=== PATIENT | female | born 1975 ===

== ENCOUNTER → 2017-12-25 11:12 | Outpatient (CLI) | payer OTHER, SELFPAY ==
[2017-12-25 12:07] LABS: Appearance Urine UA CLEAR; Bilirubin Urine UA NEGATIVE (NEGATIVE); Color Urine UA YELLOW; Glucose Urine UA NEGATIVE (Normal); Ketones Urine UA NEGATIVE (NEGATIVE); Leukocyte Esterase Urine UA NEGATIVE (NEGATIVE); Nitrite Urine UA Negative (Negative); Occult Blood Urine UA 3+ (Negative); Protein Urine UA NEGATIVE (Negative); Specific Gravity Urine UA <=1.005 (1.000-1.035); Urobilinogen Urine UA 0.2 E.U./dL (0.2)
[2017-12-25 12:43] LABS: Amorphous Sediment Urine 1+; RBC Urine 10-30/HPF (0-5/HPF); WBC Urine 0-1/HPF (0-5/HPF)
[2017-12-25 12:44] LABS: Bacteria Urine Occasional (0-1)
[2017-12-25 12:45] LABS: Culture Indicated Urine Cult Not Indicated; Squamous Epithelial Cell Urine 5-10 /HPF
== END ==
PROVIDERS: Family Provider Family Medicine; PCP Family Medicine; Visit Provider Family Medicine
DX: R31.9 Hematuria, unspecified (principal)
CPT/HCPCS: 81001

== ENCOUNTER → 2018-01-01 08:39 | Outpatient (CLI) | payer OTHER, SELFPAY ==
--- NOTE | 2018-01-01 08:48 | DI.CT.S_ITS ---
PROCEDURE: CT KIDNEY URETER BLADDER (KUB) INDICATIONS: gross hematuria TECHNIQUE: Noncontrast 5 mm thick sections acquired from the diaphragms to the symphysis. 5 mm thick coronal and sagittal reformats were then performed. For radiation dose reduction, the following was used: automated exposure control, adjustment of mA and/or kV according to patient size. COMPARISON: [facility], CT, KIDNEY/ URETER/BLADDER, 09/05/2013, 10:49. [facility], CT, ABDOMEN/PELVIS WITH CONTRAST, 06/10/2016, 14:19. FINDINGS: Image quality: Excellent. Lung bases: Lung bases are clear. Heart size is normal. Urinary system: Small nonobstructing calculi in the lower pole collecting system of the right kidney. No right hydronephrosis or perinephric fat stranding. The left kidney shows moderate hydronephrosis secondary to a 2 x 6 mm obstructing calculus at the ureteral pelvic junction. Bladder is nondistended, wall thickness is normal; no calcified bladder stones. Other solid organs: Liver is normal in size. Gallbladder is surgically absent. Pancreas is normal in contours. Spleen is normal in size. No adrenal nodules. Peritoneum and bowel: There is a line of sutures along the greater curvature of the stomach. Unenhanced bowel loops demonstrate normal wall thickness and caliber. No free fluid or air. Nodes and vessels: No retroperitoneal or mesenteric adenopathy by size criteria. Aorta and inferior vena cava are normal in caliber. Abdominal wall: No ventral hernias. There is apparent scar in the anterior abdominal wall above the umbilicus. Pelvis: No free pelvic fluid. No inguinal hernias or adenopathy. Bones: No suspicious bony lesions. No vertebral body compression fractures. IMPRESSION: 1. Right nephrolithiasis without hydronephrosis. 2. Left hydronephrosis secondary to an obstructing calculus at the UPJ. 3. Postoperative changes at the stomach. Post cholecystectomy. Dictated by: Fernando Neves M.D. on 01/01/2018 at 9:29 Approved by: Fernando Neves M.D. on 01/01/2018 at 9:37
== END ==
PROVIDERS: Family Provider Family Medicine; PCP Family Medicine; Visit Provider Family Medicine
DX: N13.2 Hydronephrosis with renal and ureteral calculous obstruction (principal); R31.0 Gross hematuria; Z87.442 Personal history of urinary calculi; Z90.49 Acquired absence of other specified parts of digestive tract
CPT/HCPCS: 74176

== ENCOUNTER 2018-01-13 18:06 | Emergency (ER) | payer OTHER, SELFPAY ==
[2018-01-13 18:52] VITALS: BP 129/90; PULSE 119; RESP 20; TEMP 37.1; O2SAT 100; BMI 39.3
--- NOTE | 2018-01-13 20:12 | ED.FEMALEGU ---
HPI - Female Genitourinary <EDOUARD Barlow - Last Filed: 01/13/18 23:00> General Chief complaint: Urogenital-Female Stated complaint: HAD KIDNEY STONE REMOVED AND A STENT PLACED PAIN Time Seen by Provider: 01/13/18 19:47 Source: patient Mode of arrival: ambulatory Limitations: no limitations History of Present Illness HPI Narrative: 42-year-old female here for complaint of pain into her left side status left ureter stent due to renal calculi 2 days ago. Surgery was completed by Dr. Agarwal Urologdaniel and sandeep Rivers. She reports that she has had pain since the surgery. She has been using hydrocodone as prescribed for the pain. She states that has not been helping. She denies any fevers or chills. No trauma to the area. She also reports having hematuria. She states she is currently taking the antibiotic however she states that she does not know which 1 she is on. She states she has a follow-up appointment with them in the next few days. Related Data Previous Rx's Medication Instructions Recorded omeprazole 20 mg PO HS #90 tab 04/21/16 nystatin 1 alyssa TOPICAL BID #15 gm 01/30/17 triamcinolone acetonide [Triderm] 1 alyssa TOPICAL BID #30 gm 01/30/17 amitriptyline 50 mg PO QDAY #90 tab 05/12/17 lamotrigine 200 mg PO QDAY #90 tab 06/07/17 venlafaxine 225 mg PO Q DAY #180 ter 12/14/17 tamsulosin 0.4 mg capsule 0.4 mg PO DAILY #14 cap 01/05/18 oxycodone 5 mg PO Q4-6H PRN #10 cap 01/13/18 tramadol 50 mg PO Q6H PRN #15 tab 01/13/18 Allergies Allergy/AdvReac Type Severity Reaction Status Date / Time codeine [CODEINE] Allergy Unknown RESPIRATORY Unverified 01/13/18 18:51 DISTRESS oxybutynin Allergy Verified 01/13/18 18:52 hydromorphone [HYDROMORPHONE] AdvReac Mild RESPIRATORY Unverified 01/13/18 18:51 DISTRESS morphine [MORPHINE] AdvReac Mild RESPIRATORY Unverified 01/13/18 18:51 DISTRESS Review of Systems <EDOUARD Barlow - Last Filed: 01/13/18 23:00> Constitutional Denies chills, Denies fever(s), Denies lethargy and Denies weakness Eyes Denies change in vision, Denies eye discharge, Denies irritation and Denies loss of vision Cardiovascular Denies chest pain, Denies irregular heart rhythm, Denies lightheadedness, Denies palpitations, Denies dyspnea, Denies dyspnea on exertion and Denies orthopnea Respiratory Denies cough, Denies dyspnea, Denies dyspnea on exertion and Denies wheezing Gastrointestinal Gastrointestinal: Denies abdominal pain, Denies change in bowel habits, Denies diarrhea, Denies nausea and Denies vomiting Genitourinary Reports hematuria and Reports flank pain Musculoskeletal Denies back pain, Denies muscle weakness, Denies numbness and Denies tingling Integumentary/Breasts Denies pruritus, Denies erythema, Denies rash and Denies wounds Neurologic Denies confusion, Denies loss of vision, Denies numbness, Denies tingling and Denies weakness Psychiatric Denies anxiety, Denies confusion, Denies depression, Denies homicidal ideation and Denies suicidal ideation Endocrine Denies palpitations Hematologic/Lymphatic Denies easy bruising Allergic/Immunologic Denies wheezing Exam <EDOUARD Barlow - Last Filed: 01/13/18 23:00> Initial Vital Signs Initial Vital Signs: Vital Signs Temperature 98.7 F 01/13/18 18:52 Pulse Rate 119 H 01/13/18 18:52 Respiratory Rate 20 01/13/18 18:52 Blood Pressure 129/90 H 01/13/18 18:52 Pulse Oximetry 100 01/13/18 18:52 Const General: cooperative and well developed Nutritional Appearance: well nourished Orientation: alert, awake, oriented x3 and not confused [facility] Mouth: oral mucosae normal and moist mucous membranes Eyes Conjunctivae: conjunctivae normal Sclera: sclerae normal Pupils: PERRL EOM: EOM intact bilaterally Resp Effort & Inspection: normal respiratory effort, able to speak in complete sentences, no respiratory distress and no use of accessory muscles Auscultation: clear to auscultation bilaterally, no rales, no rhonchi and no wheezes Cardio Rate: regular rate Rhythm: regular rhythm Heart Sounds: no click, no gallops, no murmurs and no rubs GI Inspection: non-distended Palpation: soft, no hepatosplenomegaly, No guarding, No pulsatile mass and No tender Auscultation: normal bowel sounds General: No CVA tenderness Back/Spine/Pelvis Other: Tenderness to the left flank area on palpation. Skin General: no rashes or lesions noted, No jaundice and No petechiae Neuro General: alert, oriented x3, gait normal and no focal motor deficits Speech: speech normal <Dwaine Weaver MD - Last Filed: 01/14/18 05:22> Initial Vital Signs Initial Vital Signs: Vital Signs Temperature 98.7 F 01/13/18 18:52 Pulse Rate 119 H 01/13/18 18:52 Respiratory Rate 20 01/13/18 18:52 Blood Pressure 129/90 H 01/13/18 18:52 Pulse Oximetry 100 01/13/18 18:52 Course <EDOUARD Barlow - Last Filed: 01/13/18 23:00> Orders Ordered: ED Orders 01/13/18 20:27 Complete Blood Count AUTO DIFF Stat Comprehensive Metabolic Panel Stat Lipase Stat Partial Thromboplastin Time Stat Prothrombin Time INR Stat Discontinued Medications Fentanyl (Sublimaze) 50 mcg IV NOW ONE Stop: 01/13/18 20:20 Last Admin: 01/13/18 20:41 Dose: 50 mcg Fentanyl (Sublimaze) 50 mcg IV NOW ONE Stop: 01/13/18 21:39 Last Admin: 01/13/18 21:40 Dose: 50 mcg Sodium Chloride (Normal Saline 0.9%) 1,000 mls @ 1,000 mls/hr IV BOLUS ONE Stop: 01/13/18 21:18 Last Infusion: 01/13/18 22:57 Dose: 0 mls/hr Admin: 01/13/18 20:41 Dose: 1,000 mls/hr Ondansetron HCl (Zofran) 4 mg IV NOW ONE Stop: 01/13/18 20:20 Last Admin: 01/13/18 20:41 Dose: 4 mg Potassium Chloride (Klor-Con M20) 40 meq PO NOW ONE Stop: 01/13/18 22:33 Last Admin: 01/13/18 22:57 Dose: 40 meq Vital Signs - 8 hr 01/13/18 22:52 Temperature 98.7 F Pulse Rate 81 Respiratory Rate 17 Blood Pressure [Right Arm] 149/93 H Pulse Oximetry 100 <Dwaine Weaver MD - Last Filed: 01/14/18 05:22> Orders Ordered: ED Orders 01/13/18 20:27 Complete Blood Count AUTO DIFF Stat Comprehensive Metabolic Panel Stat Lipase Stat Partial Thromboplastin Time Stat Prothrombin Time INR Stat Discontinued Medications Fentanyl (Sublimaze) 50 mcg IV NOW ONE Stop: 01/13/18 20:20 Last Admin: 01/13/18 20:41 Dose: 50 mcg Fentanyl (Sublimaze) 50 mcg IV NOW ONE Stop: 01/13/18 21:39 Last Admin: 01/13/18 21:40 Dose: 50 mcg Sodium Chloride (Normal Saline 0.9%) 1,000 mls @ 1,000 mls/hr IV BOLUS ONE Stop: 01/13/18 21:18 Last Infusion: 01/13/18 22:57 Dose: 0 mls/hr Admin: 01/13/18 20:41 Dose: 1,000 mls/hr Ondansetron HCl (Zofran) 4 mg IV NOW ONE Stop: 01/13/18 20:20 Last Admin: 01/13/18 20:41 Dose: 4 mg Potassium Chloride (Klor-Con M20) 40 meq PO NOW ONE Stop: 01/13/18 22:33 Last Admin: 01/13/18 22:57 Dose: 40 meq Vital Signs - 8 hr 01/13/18 22:52 Temperature 98.7 F Pulse Rate 81 Respiratory Rate 17 Blood Pressure [Right Arm] 149/93 H Pulse Oximetry 100 MDM - Female Genitourinary <EDOUARD Barlow - Last Filed: 01/13/18 23:00> Lab Data Result diagrams: 01/13/18 20:27 01/13/18 20:27 Lab Results 01/13/18 01/13/18 01/13/18 Range/Units 20:13 20:13 20:13 WBC (4.5-11.0) X10^3/uL RBC (4.0-5.2) X10^6/uL Hgb (12.0-16.0) g/dL Hct (36-46) % MCV (80-100) fL MCH (26-34) PG MCHC (30-36) % RDW (11.6-14.8) % Plt Count (150-400) X10^3/uL Neut % (Auto) (50-75) % Lymph % (Auto) (25-40) % [place] % (Auto) (3-14) % Eos % (Auto) (2-4) % Baso % (Auto) (0-2) % Neut # (Auto) (2942-0889) /uL PT (10.1-12.7) SECONDS INR (0.9-1.3) APTT (26.4-36.2) SECONDS Sodium (137-145) mmol/L Potassium (3.4-5.1) mmol/L Chloride (98-107) mmol/L Carbon Dioxide (22-32) mmol/L BUN (7-17) mg/dL Creatinine (0.52-1.04) mg/dL Estimated GFR (>60) mL/min BUN/Creatinine Ratio (6-22) Glucose (70-100) mg/dL Calcium (8.4-10.2) mg/dL Total Bilirubin (0.2-1.3) mg/dL AST (14-36) IU/L ALT (9-52) IU/L Alkaline Phosphatase (38-126) U/L Total Protein (6.3-8.2) g/dL Albumin (3.5-5.0) g/dL Globulin (1.7-4.1) g/dL Albumin/Globulin Ratio (1.0-2.8) Lipase (23-300) U/L Urine Color Brown Urine Appearance Cloudy Urine pH 6.5 (4.5-8.0) Ur Specific [place] 1.020 (1.000-1.035) Urine Protein 3+ H (Negative) Urine Glucose (UA) Negative (Normal) g/dL Urine Ketones 3+ H (NEGATIVE) Urine Occult Blood 3+ H (Negative) Urine Nitrate Negative (Negative) Urine Bilirubin 1+ H (NEGATIVE) Urine Ictotest Negative (Negative) Urine Urobilinogen 1.0 (0.2) E.U./dL Ur Leukocyte Esterase 1+ H (NEGATIVE) Urine RBC >100/hpf H (0-5/HPF) Urine WBC 5-10/hpf H (0-5/HPF) Ur Squamous Epith Cells None seen Urine Bacteria Few (2-10) H (None) Ur Culture Indicated? Specimen cultured Micro UA Comment Not Reportable Urine Test Negative (Negative) 01/13/18 01/13/18 01/13/18 Range/Units 20:27 20:27 20:27 WBC 8.9 (4.5-11.0) X10^3/uL RBC 5.12 (4.0-5.2) X10^6/uL Hgb 15.4 (12.0-16.0) g/dL Hct 46.3 H (36-46) % MCV 90.5 (80-100) fL MCH 30.2 (26-34) PG MCHC 33.4 (30-36) % RDW 14.2 (11.6-14.8) % Plt Count 280 (150-400) X10^3/uL Neut % (Auto) 70.4 (50-75) % Lymph % (Auto) 21.4 L (25-40) % [place] % (Auto) 7.5 (3-14) % Eos % (Auto) 0.3 L (2-4) % Baso % (Auto) 0.4 (0-2) % Neut # (Auto) 6200 H (3197-5829) /uL PT 11.3 (10.1-12.7) SECONDS INR 1.0 (0.9-1.3) APTT 32 (26.4-36.2) SECONDS Sodium 137 (137-145) mmol/L Potassium 3.1 L (3.4-5.1) mmol/L Chloride 94 L (98-107) mmol/L Carbon Dioxide 31 (22-32) mmol/L BUN 17 (7-17) mg/dL Creatinine 0.70 (0.52-1.04) mg/dL Estimated GFR > 60.0 (>60) mL/min BUN/Creatinine Ratio 24.3 H (6-22) Glucose 114 H (70-100) mg/dL Calcium 9.9 (8.4-10.2) mg/dL Total Bilirubin 0.6 (0.2-1.3) mg/dL AST 67 H (14-36) IU/L ALT 109 H (9-52) IU/L Alkaline Phosphatase 150 H (38-126) U/L Total Protein 8.3 H (6.3-8.2) g/dL Albumin 4.8 (3.5-5.0) g/dL Globulin 3.5 (1.7-4.1) g/dL Albumin/Globulin Ratio 1.4 (1.0-2.8) Lipase 58 (23-300) U/L Urine Color Urine Appearance Urine pH (4.5-8.0) Ur Specific [place] (1.000-1.035) Urine Protein (Negative) Urine Glucose (UA) (Normal) g/dL Urine Ketones (NEGATIVE) Urine Occult Blood (Negative) Urine Nitrate (Negative) Urine Bilirubin (NEGATIVE) Urine Ictotest (Negative) Urine Urobilinogen (0.2) E.U./dL Ur Leukocyte Esterase (NEGATIVE) Urine RBC (0-5/HPF) Urine WBC (0-5/HPF) Ur Squamous Epith Cells Urine Bacteria (None) Ur Culture Indicated? Micro UA Comment Urine Test (Negative) MDM Narrative Medical decision making narrative: CBC was obtained and white count was normal. Chemistry panel shows decreased potassium at 3.1. 40meq a potassium was given in the emergency room. Signs and symptoms presents as postop pain due to the ureter stent. Discussed case with Urology Dr. Bustillo which recommended patient patient on a 10 be low some 2 times a day and tramadol along with [id number] Tylenol. Hydrocodone for breakthrough pain. Patient is encouraged to follow up with Urology on Monday for re-evaluation. Continue taking antibiotics as prescribed. For any worsening symptoms return to the emergency room. <Dwaine Weaver MD - Last Filed: 01/14/18 05:22> Lab Data Lab Results 01/13/18 01/13/18 01/13/18 Range/Units 20:13 20:13 20:13 WBC (4.5-11.0) X10^3/uL RBC (4.0-5.2) X10^6/uL Hgb (12.0-16.0) g/dL Hct (36-46) % MCV (80-100) fL MCH (26-34) PG MCHC (30-36) % RDW (11.6-14.8) % Plt Count (150-400) X10^3/uL Neut % (Auto) (50-75) % Lymph % (Auto) (25-40) % [place] % (Auto) (3-14) % Eos % (Auto) (2-4) % Baso % (Auto) (0-2) % Neut # (Auto) (7861-5836) /uL PT (10.1-12.7) SECONDS INR (0.9-1.3) APTT (26.4-36.2) SECONDS Sodium (137-145) mmol/L Potassium (3.4-5.1) mmol/L Chloride (98-107) mmol/L Carbon Dioxide (22-32) mmol/L BUN (7-17) mg/dL Creatinine (0.52-1.04) mg/dL Estimated GFR (>60) mL/min BUN/Creatinine Ratio (6-22) Glucose (70-100) mg/dL Calcium (8.4-10.2) mg/dL Total Bilirubin (0.2-1.3) mg/dL AST (14-36) IU/L ALT (9-52) IU/L Alkaline Phosphatase (38-126) U/L Total Protein (6.3-8.2) g/dL Albumin (3.5-5.0) g/dL Globulin (1.7-4.1) g/dL Albumin/Globulin Ratio (1.0-2.8) Lipase (23-300) U/L Urine Color Brown Urine Appearance Cloudy Urine pH 6.5 (4.5-8.0) Ur Specific [place] 1.020 (1.000-1.035) Urine Protein 3+ H (Negative) Urine Glucose (UA) Negative (Normal) g/dL Urine Ketones 3+ H (NEGATIVE) Urine Occult Blood 3+ H (Negative) Urine Nitrate Negative (Negative) Urine Bilirubin 1+ H (NEGATIVE) Urine Ictotest Negative (Negative) Urine Urobilinogen 1.0 (0.2) E.U./dL Ur Leukocyte Esterase 1+ H (NEGATIVE) Urine RBC >100/hpf H (0-5/HPF) Urine WBC 5-10/hpf H (0-5/HPF) Ur Squamous Epith Cells None seen Urine Bacteria Few (2-10) H (None) Ur Culture Indicated? Specimen cultured Micro UA Comment Not Reportable Urine Test Negative (Negative) 01/13/18 01/13/18 01/13/18 Range/Units 20:27 20:27 20:27 WBC 8.9 (4.5-11.0) X10^3/uL RBC 5.12 (4.0-5.2) X10^6/uL Hgb 15.4 (12.0-16.0) g/dL Hct 46.3 H (36-46) % MCV 90.5 (80-100) fL MCH 30.2 (26-34) PG MCHC 33.4 (30-36) % RDW 14.2 (11.6-14.8) % Plt Count 280 (150-400) X10^3/uL Neut % (Auto) 70.4 (50-75) % Lymph % (Auto) 21.4 L (25-40) % [place] % (Auto) 7.5 (3-14) % Eos % (Auto) 0.3 L (2-4) % Baso % (Auto) 0.4 (0-2) % Neut # (Auto) 6200 H (0221-9752) /uL PT 11.3 (10.1-12.7) SECONDS INR 1.0 (0.9-1.3) APTT 32 (26.4-36.2) SECONDS Sodium 137 (137-145) mmol/L Potassium 3.1 L (3.4-5.1) mmol/L Chloride 94 L (98-107) mmol/L Carbon Dioxide 31 (22-32) mmol/L BUN 17 (7-17) mg/dL Creatinine 0.70 (0.52-1.04) mg/dL Estimated GFR > 60.0 (>60) mL/min BUN/Creatinine Ratio 24.3 H (6-22) Glucose 114 H (70-100) mg/dL Calcium 9.9 (8.4-10.2) mg/dL Total Bilirubin 0.6 (0.2-1.3) mg/dL AST 67 H (14-36) IU/L ALT 109 H (9-52) IU/L Alkaline Phosphatase 150 H (38-126) U/L Total Protein 8.3 H (6.3-8.2) g/dL Albumin 4.8 (3.5-5.0) g/dL Globulin 3.5 (1.7-4.1) g/dL Albumin/Globulin Ratio 1.4 (1.0-2.8) Lipase 58 (23-300) U/L Urine Color Urine Appearance Urine pH (4.5-8.0) Ur Specific [place] (1.000-1.035) Urine Protein (Negative) Urine Glucose (UA) (Normal) g/dL Urine Ketones (NEGATIVE) Urine Occult Blood (Negative) Urine Nitrate (Negative) Urine Bilirubin (NEGATIVE) Urine Ictotest (Negative) Urine Urobilinogen (0.2) E.U./dL Ur Leukocyte Esterase (NEGATIVE) Urine RBC (0-5/HPF) Urine WBC (0-5/HPF) Ur Squamous Epith Cells Urine Bacteria (None) Ur Culture Indicated? Micro UA Comment Urine Test (Negative) Discharge Plan Departure Patient Disposition: Home, Self-Care Clinical Impression: Acute hypokalemia, Pain due to ureteral stent Discharge Date/Time: 01/13/18 23:17 Interventions: ED Discharge Assessment Last Done: 01/13/18 23:14 Instructions: DI for Postoperative Pain Activity Restrictions/Additional Instructions: Laboratory results show hypokalemia which is low potassium year given potassium in the emergency room. Otherwise laboratory results show blood in the urine secondary to the surgery. Signs and symptoms presents as pain is secondary to surgery. UR prescribed tramadol use as directed he uses tramadol along with [id number] Tylenol. Use oxycodone as prescribed for breakthrough pain not covered by the tramadol. You may use the prescribed tamsulosin with a 2nd tablet at bedtime if still having discomfort. Follow up with Urology as directed. Do not use the oxycodone and conjunction with the tramadol.. For any worsening symptoms return to the emergency room. Prescriptions: New oxycodone 5 mg capsule 5 mg PO Q4-6H PRN (Reason: pain) Qty: 10 RF: 0 tramadol 50 mg tablet 50 mg PO Q6H PRN (Reason: pain) Qty: 15 RF: 0 No Action omeprazole 20 MG tablet,delayed release (DR/EC) 20 mg PO HS Qty: 90 RF: 3 nystatin 15 GM ointment 1 alyssa Topical BID Qty: 15 RF: 3 triamcinolone acetonide [Triderm] 0.1 % cream 1 alyssa Topical BID Qty: 30 RF: 3 amitriptyline 50 MG tablet 50 mg PO QDAY Qty: 90 RF: 3 lamotrigine 200 MG tablet 200 mg PO QDAY Qty: 90 RF: 2 venlafaxine 75 mg tablet extended release 24hr 225 mg PO Q DAY Qty: 180 RF: 3 tamsulosin [Flomax] 0.4 mg capsule,extended release 24hr 0.4 mg PO DAILY Qty: 14 RF: 0 Referrals: Nicole Bain MD [Primary Care Provider] - <Dwaine Weaver MD - Last Filed: 01/14/18 05:22> Cosign ED Attending Juveature Attestation: I was available in the ER for verbal consultation and to see the patient directly if needed. I agree with the evaluation and discharge plan for this patient.
[2018-01-13 20:27] LABS: Pregnancy Test Urine Negative (Negative)
[2018-01-13 20:34] LABS: Add Manual Diff / Slide Review NO; Basophils Percent Auto 0.4 % (0-2); Eosinophils Percent Auto 0.3 % (2-4); Hematocrit 46.3 % (36-46); Hemoglobin 15.4 g/dL (12.0-16.0); Lymphocytes Percent Auto 21.4 % (25-40); Mean Corpuscular HGB Conc 33.4 % (30-36); Mean Corpuscular Hemoglobin 30.2 PG (26-34); Mean Corpuscular Volume 90.5 fL (80-100); Monocytes Percent Auto 7.5 % (3-14); Neutrophils Absolute Auto 6200 /uL (3000-5900); Neutrophils Percent Auto 70.4 % (50-75); Platelet Count 280 X10^3/uL (150-400); Red Blood Cell Count 5.12 X10^6/uL (4.0-5.2); Red Cell Distribution Width 14.2 % (11.6-14.8); White Blood Cell Count 8.9 X10^3/uL (4.5-11.0)
[2018-01-13] MEDS: ONDANSETRON 4 MG/2 ML INJ IV (20:41)
[2018-01-13] MEDS: fentaNYL 100 MCG/2 ML INJ 50 MCG IV ×2 (20:41→21:40)
[2018-01-13] MEDS: SODIUM CHLORIDE 0.9% 1,000 ML 1000 ML IV (20:41)
[2018-01-13 20:44] LABS: Appearance Urine UA CLOUDY; Bilirubin Urine UA 1+ (NEGATIVE); Glucose Urine UA NEGATIVE (Normal); Ketones Urine UA 3+ (NEGATIVE); Leukocyte Esterase Urine UA 1+ (NEGATIVE); Nitrite Urine UA Negative (Negative); Occult Blood Urine UA 3+ (Negative); Protein Urine UA 3+ (Negative); pH Urine UA 6.5 (4.5-8.0)
[2018-01-13 20:47] LABS: Bacteria Urine Few (2-10); Color Urine UA BROWN; Culture Indicated Urine Specimen Cultured; RBC Urine >100/HPF (0-5/HPF); Squamous Epithelial Cell Urine None Seen; WBC Urine 5-10/HPF (0-5/HPF)
[2018-01-13 20:59] LABS: Ictotest Urine Negative (Negative)
[2018-01-13 21:00] LABS: Prothrombin Time 11.3 SECONDS (10.1-12.7)
[2018-01-13 21:02] LABS: PTT Partial Thromboplastin Tim 32 SECONDS (26.4-36.2)
[2018-01-13 21:04] LABS: Alanine Aminotransferase 109 IU/L (9-52); Albumin 4.8 g/dL (3.5-5.0); Albumin Globulin Ratio 1.4 (1.0-2.8); Alkaline Phosphatase 150 U/L (38-126); Aspartate Aminotransferase 67 IU/L (14-36); BUN Creatinine Ratio 24.3 (6-22); Bilirubin Total 0.6 mg/dL (0.2-1.3); Blood Urea Nitrogen 17 mg/dL (7-17); Calcium 9.9 mg/dL (8.4-10.2); Carbon Dioxide 31 mmol/L (22-32); Chloride 94 mmol/L (98-107); Estimated Glomerular Filt Rate > 60.0 mL/min (>60); Globulin 3.5 g/dL (1.7-4.1); Glucose 114 mg/dL (70-100); HEMOLYSIS < 15 (0-50); Lipase 58 U/L (23-300); Potassium 3.1 mmol/L (3.4-5.1); Sodium 137 mmol/L (137-145); Total Protein 8.3 g/dL (6.3-8.2)
--- NOTE | 2018-01-13 21:43 | PC.NURSE ---
Pt reported increasing pain-- pain was manageable at 4/10 after fentanyl, pt reports pain is increasing to 6/10. Sade notified, pt medicated per verbal order with 50 mcg Fentanyl IV. Friend at bedside. Will monitor.
[2018-01-13 22:52] VITALS: BP 149/93; PULSE 81; RESP 17; TEMP 37.1; O2SAT 100
[2018-01-13] MEDS: POTASSIUM CHLORIDE 20 MEQ TAB 40 MEQ PO (22:57)
== END 2018-01-13 23:17 | disposition home or self-care (01) ==
PROVIDERS: Emergency Medicine; Emergency Provider Nurse Practitioner Family; Family Provider Family Medicine; PCP Family Medicine
DX: E87.6 Hypokalemia (principal); T83.84XA Pain due to genitourinary prosthetic devices, implants and grafts, initial encounter
CPT/HCPCS: 36591; 80053; 81001; 81025; 83690; 85025; 85610; 85730; 87086; 96361; 96374; 96375; 96376; 99283; 99284; J2405; J3010

== ENCOUNTER 2018-01-16 19:58 | Emergency (ER) | payer OTHER, SELFPAY ==
[2018-01-16 20:07] VITALS: BP 125/91; PULSE 124; RESP 16; TEMP 36.8; O2SAT 99; BMI 38.2
--- NOTE | 2018-01-16 21:03 | DI.CT.S_ITS ---
PROCEDURE: CT ABDOMEN PELVIS W CON INDICATIONS: severe pain all quadrants after ureteral stent removal TECHNIQUE: After the administration of intravenous contrast, 5 mm thick sections acquired from the diaphragm to the symphysis. 5 mm coronal and sagittal reformats were acquired. For radiation dose reduction, the following was used: automated exposure control, adjustment of mA and/or kV according to patient size. COMPARISON: [facility], CT, CT KIDNEY URETER BLADDER (KUB), 01/01/2018, 8:47. [facility], CT, ABDOMEN/PELVIS WITH CONTRAST, 06/10/2016, 14:19. FINDINGS: Image quality: Excellent. ABDOMEN: Lung bases: Lung bases are clear. Heart size is normal. Solid organs: Liver is normal in size and enhancement. Gallbladder surgically absent. Biliary system is non dilated. Pancreas enhances normally. Spleen is normal in size and enhancement. No adrenal nodules. Nonobstructive 2 mm right renal calculus seen on image 37 series 2. There is mild left hydronephrosis and hydroureter with periureteral fat stranding and diffuse uroepithelial enhancement/inflammation. There is left perinephric stranding. Redemonstration of the 1 mm residual left calculus. 6 mm calculus at the left UPJ is no longer visualized Peritoneum and bowel: Postsurgical changes involving the stomach No free fluid or air. Nodes and vessels: No retroperitoneal or mesenteric adenopathy by size criteria. Aorta and inferior vena cava are normal in size. Miscellaneous: No ventral hernias. PELVIS: Genitourinary: Bladder wall thickness is normal. Small focus of gas seen within the latter Miscellaneous: No inguinal hernias or adenopathy. Bones: No suspicious bony lesions. No vertebral body compression fractures. IMPRESSION: Mild left hydroureteronephrosis, with residual uroepithelial enhancement/inflammation presumably from recent ureteral stenting, or potentially infection. Please correlate with urinalysis data. Trace air seen within the bladder, possibly from recent catheterization although technically nonspecific etiology. Bilateral sub-5 mm nephrolithiasis. Status post cholecystectomy. Appendix not clearly identified therefore please correlate clinically and with laboratory data. Dictated by: Zaid Robles M.D. on 01/17/2018 at 7:50 Approved by: Zaid Robles M.D. on 01/17/2018 at 7:58
[2018-01-16] MEDS: SODIUM CHLORIDE 0.9% 1,000 ML 1000 ML IV ×2 (21:08→22:30)
[2018-01-16] MEDS: KETOROLAC 60 MG/2 ML VIAL 30 MG IV (21:08)
[2018-01-16 21:14] LABS: Pregnancy Test Urine Negative (Negative)
[2018-01-16 21:17] LABS: Add Manual Diff / Slide Review NO; Basophils Percent Auto 0.6 % (0-2); Eosinophils Percent Auto 0.9 % (2-4); Hematocrit 41.5 % (36-46); Hemoglobin 14.2 g/dL (12.0-16.0); Lymphocytes Percent Auto 17.8 % (25-40); Mean Corpuscular HGB Conc 34.2 % (30-36); Mean Corpuscular Hemoglobin 30.8 PG (26-34); Monocytes Percent Auto 10.3 % (3-14); Neutrophils Absolute Auto 6800 /uL (3000-5900); Neutrophils Percent Auto 70.4 % (50-75); Platelet Count 281 X10^3/uL (150-400); Red Blood Cell Count 4.61 X10^6/uL (4.0-5.2); Red Cell Distribution Width 14.3 % (11.6-14.8); White Blood Cell Count 9.7 X10^3/uL (4.5-11.0)
[2018-01-16 21:18] LABS: Alanine Aminotransferase 49 IU/L (9-52); Albumin 4.4 g/dL (3.5-5.0); Albumin Globulin Ratio 1.4 (1.0-2.8); Alkaline Phosphatase 122 U/L (38-126); Amylase 60 U/L (30-110); Aspartate Aminotransferase 29 IU/L (14-36); BUN Creatinine Ratio 15.5 (6-22); Bilirubin Total 0.6 mg/dL (0.2-1.3); Blood Urea Nitrogen 17 mg/dL (7-17); Calcium 9.6 mg/dL (8.4-10.2); Carbon Dioxide 27 mmol/L (22-32); Chloride 95 mmol/L (98-107); Creatine Kinase 50 U/L (30-135); Globulin 3.2 g/dL (1.7-4.1); Glucose 112 mg/dL (70-100); HEMOLYSIS < 15 (0-50); Lipase 55 U/L (23-300); Potassium 2.8 mmol/L (3.4-5.1); Sodium 137 mmol/L (137-145); Total Protein 7.6 g/dL (6.3-8.2)
[2018-01-16 21:21] LABS: Appearance Urine UA Slightly Cloudy
[2018-01-16 21:22] LABS: Color Urine UA Orange; RBC Urine 10-30/HPF (0-5/HPF); Squamous Epithelial Cell Urine 0-1 /HPF; WBC Urine 5-10/HPF (0-5/HPF)
[2018-01-16 21:23] LABS: Bacteria Urine Few (2-10); Culture Indicated Urine Specimen Cultured
[2018-01-16 21:30] LABS: Troponin I < 0.012 ng/mL (0.01-0.034)
[2018-01-16] MEDS: ONDANSETRON 4 MG/2 ML INJ IV (21:36)
[2018-01-16] MEDS: fentaNYL 100 MCG/2 ML INJ 50 MCG IV ×2 (21:37→22:35)
[2018-01-16 22:06] VITALS: BP 153/93; PULSE 102; RESP 15; O2SAT 100
--- NOTE | 2018-01-16 22:23 | ED.FEMALEGU ---
HPI - Female Genitourinary <Sulma Escamilla, TILE FINISHER-BC - Last Filed: 01/17/18 00:09> General Chief complaint: Urogenital-Female Stated complaint: had ureter stint removed, says in lots of pain Time Seen by Provider: 01/16/18 20:20 Source: patient and family Mode of arrival: ambulatory Limitations: no limitations History of Present Illness HPI Narrative: Patient presents complaining of pain after ureteral stent removed this morning. She had a recent lithotripsy done. She is on Macrobid. She denies any fevers nausea vomiting or diarrhea. She complains of severe pain all over her stomach. She has been taking her oxycodone. She called Urology and they told her not to take her tramadol as well. She states she has only had 2 glasses of water today. She also has a history significant for gastric sleeve surgery in [place] this year. Patient states she does know when her last bowel movement was, but that she had one before stent placement on . The patient states she has a history of a bowel blockage. Related Data Previous Rx's Medication Instructions Recorded omeprazole 20 mg PO HS #90 tab 04/21/16 nystatin 1 alyssa TOPICAL BID #15 gm 01/30/17 triamcinolone acetonide [Triderm] 1 alyssa TOPICAL BID #30 gm 01/30/17 amitriptyline 50 mg PO QDAY #90 tab 05/12/17 lamotrigine 200 mg PO QDAY #90 tab 06/07/17 venlafaxine 225 mg PO Q DAY #180 ter 12/14/17 tamsulosin 0.4 mg capsule 0.4 mg PO DAILY #14 cap 01/05/18 oxycodone 5 mg PO Q4-6H PRN #10 cap 01/13/18 tramadol 50 mg PO Q6H PRN #15 tab 01/13/18 potassium chloride 40 meq PO DAILY #2 each 01/16/18 Allergies Allergy/AdvReac Type Severity Reaction Status Date / Time codeine [CODEINE] Allergy Unknown RESPIRATORY Unverified 01/13/18 18:51 DISTRESS oxybutynin Allergy Verified 01/13/18 18:52 hydromorphone [HYDROMORPHONE] AdvReac Mild RESPIRATORY Unverified 01/13/18 18:51 DISTRESS morphine [MORPHINE] AdvReac Mild RESPIRATORY Unverified 01/13/18 18:51 DISTRESS Review of Systems <Sulma Escamilla TILE FINISHER-BC - Last Filed: 01/17/18 00:09> Review of Systems GENERAL: Denies chills, fatigue, malaise, fever, sweats. HEENT: Denies sinus pain, ear pain, sore throat, difficulty swallowing, dizziness. RESPIRATORY: Denies dyspnea, cough, wheezing, hemoptysis, sputum. CARDIOVASCULAR: Denies chest pain, palpitations, orthopnea, edema, GASTROINTESTINAL: Denies nausea, vomiting, abdominal pain, diarrhea, constipation, melena. : Denies dysuria, frequency, incontinence, hematuria, urinary retention. MUSCULOSKELETAL: denies weakness, joint pain, or bony pain SKIN: Denies rash, skin lesions, or other NEUROLOGIC: Denies weakness, headache, numbness, change in speech, confusion, seizures, incoordination. PSYCHIATRIC: No concerning psychosocial issues. 12 point review of systems is negative except for those stated above Exam <Sulma EscamillaALEXANDRIA-BC - Last Filed: 01/17/18 00:09> Narrative Exam Narrative: GENERAL: Obese patient, teary, friend at bedside. HEAD: Atraumatic. Normocephalic. No temporal or scalp tenderness. EYES: Pupils equal round and reactive. Extraocular motions intact. No scleral icterus. No injection or drainage. ENT: Nose without bleeding, purulent drainage or septal hematoma. Throat without erythema, tonsillar hypertrophy or exudate. Uvula midline. Airway patent. NECK: Trachea midline. No JVD or lymphadenopathy. Supple, nontender, no meningeal signs. CARDIOVASCULAR: Regular rate and rhythm without murmurs, gallops, or rubs. RESPIRATORY: Clear to auscultation. Breath sounds equal bilaterally. No wheezes, rales, or rhonchi. GASTROINTESTINAL: Abdomen obese. Active bowel sounds. Pain to palpation all 4 quadrants. Some guarding noted all 4 quadrants. No palpable organomegaly. EXTREMITIES: No clubbing, cyanosis, or edema. No joint tenderness, effusion, or edema noted. BACK: Nontender without deformity or crepitance. No flank tenderness. No CVA tenderness bilaterally. NEURO: AOx3. SKIN: No rash or erythema. Initial Vital Signs Initial Vital Signs: Vital Signs Temperature 98.2 F 01/16/18 20:07 Pulse Rate 124 H 01/16/18 20:07 Respiratory Rate 16 01/16/18 20:07 Blood Pressure 125/91 H 01/16/18 20:07 Pulse Oximetry 99 01/16/18 20:07 <Conrado Tubbs DO - Last Filed: 01/17/18 01:03> Initial Vital Signs Initial Vital Signs: Vital Signs Temperature 98.2 F 01/16/18 20:07 Pulse Rate 124 H 01/16/18 20:07 Respiratory Rate 16 01/16/18 20:07 Blood Pressure 125/91 H 01/16/18 20:07 Pulse Oximetry 99 01/16/18 20:07 Course <AL[place]RI[place] Marie-BC - Last Filed: 01/17/18 00:09> Additional Information: I checked on the patient several times throughout her stay in the emergency department. Orders Ordered: ED Orders 01/16/18 20:42 EKG-12 Lead Stat 01/16/18 20:50 Amylase Stat Complete Blood Count AUTO DIFF Stat Comprehensive Metabolic Panel Stat Lipase Stat Test Urine Stat Troponin & CK Cardiac Panel Stat Urinalysis and Microscopic Stat Urine Culture Stat 01/16/18 21:03 CT abdomen pelvis w con Stat Discontinued Medications Fentanyl (Sublimaze) 50 mcg IV NOW ONE Stop: 01/16/18 21:29 Last Admin: 01/16/18 21:37 Dose: 50 mcg Fentanyl (Sublimaze) 50 mcg IV NOW ONE Stop: 01/16/18 22:32 Last Admin: 01/16/18 22:35 Dose: 50 mcg Fentanyl (Sublimaze) 100 mcg IV NOW ONE Stop: 01/16/18 22:51 Last Admin: 01/16/18 23:36 Dose: 100 mcg Sodium Chloride (Normal Saline 0.9%) 1,000 mls @ 1,000 mls/hr IV BOLUS ONE Stop: 01/16/18 21:41 Last Infusion: 01/16/18 22:10 Dose: 0 mls/hr Admin: 01/16/18 21:08 Dose: 1,000 mls/hr Potassium Chloride 60 meq/ (Sodium Chloride) 530 mls @ 88.333 mls/hr IV NOW ONE Stop: 01/17/18 03:27 Last Infusion: 01/17/18 00:35 Dose: 0 mls/hr Admin: 01/16/18 22:30 Dose: 88.333 mls/hr Sodium Chloride (Normal Saline 0.9%) 1,000 mls @ 1,000 mls/hr IV BOLUS ONE Stop: 01/16/18 23:20 Last Infusion: 01/17/18 00:37 Dose: 0 mls/hr Admin: 01/16/18 22:30 Dose: 1,000 mls/hr Ketorolac Tromethamine (Toradol) 30 mg IV NOW ONE Stop: 01/16/18 20:43 Last Admin: 01/16/18 21:08 Dose: 30 mg Ondansetron HCl (Zofran) 4 mg IV NOW ONE Stop: 01/16/18 21:36 Last Admin: 01/16/18 21:36 Dose: 4 mg Potassium Chloride (Potassium Chloride) 40 meq PO NOW ONE Stop: 01/16/18 23:28 Last Admin: 01/16/18 23:36 Dose: 40 meq Sodium Biphosphate/Sodium Phosphate (Fleet Enema) 1 each MD NOW ONE Stop: 01/16/18 23:34 Last Admin: 01/17/18 00:08 Dose: 1 each Vital Signs - 8 hr 01/16/18 20:07 01/16/18 22:06 01/16/18 22:25 Temperature 98.2 F Pulse Rate 124 H 102 H 89 Respiratory Rate 16 15 10 L Blood Pressure 125/91 H Blood Pressure [Left Arm] 153/93 H 155/91 H Pulse Oximetry 99 100 100 01/17/18 00:37 Temperature 98.6 F Pulse Rate 85 Respiratory Rate 16 Blood Pressure 135/75 H Blood Pressure [Left Arm] Pulse Oximetry 100 <Conrado Tubbs DO - Last Filed: 01/17/18 01:03> Orders Ordered: ED Orders 01/16/18 20:42 EKG-12 Lead Stat 01/16/18 20:50 Amylase Stat Complete Blood Count AUTO DIFF Stat Comprehensive Metabolic Panel Stat Lipase Stat Test Urine Stat Troponin & CK Cardiac Panel Stat Urinalysis and Microscopic Stat Urine Culture Stat 01/16/18 21:03 CT abdomen pelvis w con Stat Discontinued Medications Fentanyl (Sublimaze) 50 mcg IV NOW ONE Stop: 01/16/18 21:29 Last Admin: 01/16/18 21:37 Dose: 50 mcg Fentanyl (Sublimaze) 50 mcg IV NOW ONE Stop: 01/16/18 22:32 Last Admin: 01/16/18 22:35 Dose: 50 mcg Fentanyl (Sublimaze) 100 mcg IV NOW ONE Stop: 01/16/18 22:51 Last Admin: 01/16/18 23:36 Dose: 100 mcg Sodium Chloride (Normal Saline 0.9%) 1,000 mls @ 1,000 mls/hr IV BOLUS ONE Stop: 01/16/18 21:41 Last Infusion: 01/16/18 22:10 Dose: 0 mls/hr Admin: 01/16/18 21:08 Dose: 1,000 mls/hr Potassium Chloride 60 meq/ (Sodium Chloride) 530 mls @ 88.333 mls/hr IV NOW ONE Stop: 01/17/18 03:27 Last Infusion: 01/17/18 00:35 Dose: 0 mls/hr Admin: 01/16/18 22:30 Dose: 88.333 mls/hr Sodium Chloride (Normal Saline 0.9%) 1,000 mls @ 1,000 mls/hr IV BOLUS ONE Stop: 01/16/18 23:20 Last Infusion: 01/17/18 00:37 Dose: 0 mls/hr Admin: 01/16/18 22:30 Dose: 1,000 mls/hr Ketorolac Tromethamine (Toradol) 30 mg IV NOW ONE Stop: 01/16/18 20:43 Last Admin: 01/16/18 21:08 Dose: 30 mg Ondansetron HCl (Zofran) 4 mg IV NOW ONE Stop: 01/16/18 21:36 Last Admin: 01/16/18 21:36 Dose: 4 mg Potassium Chloride (Potassium Chloride) 40 meq PO NOW ONE Stop: 01/16/18 23:28 Last Admin: 01/16/18 23:36 Dose: 40 meq Sodium Biphosphate/Sodium Phosphate (Fleet Enema) 1 each MD NOW ONE Stop: 01/16/18 23:34 Last Admin: 01/17/18 00:08 Dose: 1 each Vital Signs - 8 hr 01/16/18 20:07 01/16/18 22:06 01/16/18 22:25 Temperature 98.2 F Pulse Rate 124 H 102 H 89 Respiratory Rate 16 15 10 L Blood Pressure 125/91 H Blood Pressure [Left Arm] 153/93 H 155/91 H Pulse Oximetry 99 100 100 01/17/18 00:37 Temperature 98.6 F Pulse Rate 85 Respiratory Rate 16 Blood Pressure 135/75 H Blood Pressure [Left Arm] Pulse Oximetry 100 MDM - Female Genitourinary <ZAINA MarieP- - Last Filed: 01/17/18 00:09> Lab Data Attestation: I reviewed the patient's lab results. Result diagrams: 01/16/18 20:50 01/16/18 20:50 Lab Results 01/16/18 01/16/18 01/16/18 Range/Units 20:50 20:50 20:50 WBC 9.7 (4.5-11.0) X10^3/uL RBC 4.61 (4.0-5.2) X10^6/uL Hgb 14.2 (12.0-16.0) g/dL Hct 41.5 (36-46) % MCV 90.0 (80-100) fL MCH 30.8 (26-34) PG MCHC 34.2 (30-36) % RDW 14.3 (11.6-14.8) % Plt Count 281 (150-400) X10^3/uL Neut % (Auto) 70.4 (50-75) % Lymph % (Auto) 17.8 L (25-40) % [place]edar % (Auto) 10.3 (3-14) % Eos % (Auto) 0.9 L (2-4) % Baso % (Auto) 0.6 (0-2) % Neut # (Auto) 6800 H (6238-1319) /uL Sodium 137 (137-145) mmol/L Potassium 2.8 L (3.4-5.1) mmol/L Chloride 95 L (98-107) mmol/L Carbon Dioxide 27 (22-32) mmol/L BUN 17 (7-17) mg/dL Creatinine 1.10 H (0.52-1.04) mg/dL Estimated GFR 55.0 L (>60) mL/min BUN/Creatinine Ratio 15.5 (6-22) Glucose 112 H (70-100) mg/dL Calcium 9.6 (8.4-10.2) mg/dL Total Bilirubin 0.6 (0.2-1.3) mg/dL AST 29 (14-36) IU/L ALT 49 (9-52) IU/L Alkaline Phosphatase 122 (38-126) U/L Total Creatine Kinase 50 (30-135) U/L Troponin I < 0.012 (0.01-0.034) ng/mL Total Protein 7.6 (6.3-8.2) g/dL Albumin 4.4 (3.5-5.0) g/dL Globulin 3.2 (1.7-4.1) g/dL Albumin/Globulin Ratio 1.4 (1.0-2.8) Amylase 60 (30-110) U/L Lipase 55 (23-300) U/L Urine Color Urine Appearance Urine pH Ur Specific [place] Urine Protein Urine Glucose (UA) Urine Ketones Urine Occult Blood Urine Nitrate Urine Bilirubin Urine Urobilinogen Ur Leukocyte Esterase Urine RBC (0-5/HPF) Urine WBC (0-5/HPF) Ur Squamous Epith Cells Urine Bacteria (None) Ur Culture Indicated? Micro UA Comment Urine Test Negative (Negative) 01/16/18 Range/Units 20:50 WBC (4.5-11.0) X10^3/uL RBC (4.0-5.2) X10^6/uL Hgb (12.0-16.0) g/dL Hct (36-46) % MCV (80-100) fL MCH (26-34) PG MCHC (30-36) % RDW (11.6-14.8) % Plt Count (150-400) X10^3/uL Neut % (Auto) (50-75) % Lymph % (Auto) (25-40) % Cedar % (Auto) (3-14) % Eos % (Auto) (2-4) % Baso % (Auto) (0-2) % Neut # (Auto) (4884-6861) /uL Sodium (137-145) mmol/L Potassium (3.4-5.1) mmol/L Chloride (98-107) mmol/L Carbon Dioxide (22-32) mmol/L BUN (7-17) mg/dL Creatinine (0.52-1.04) mg/dL Estimated GFR (>60) mL/min BUN/Creatinine Ratio (6-22) Glucose (70-100) mg/dL Calcium (8.4-10.2) mg/dL Total Bilirubin (0.2-1.3) mg/dL AST (14-36) IU/L ALT (9-52) IU/L Alkaline Phosphatase (38-126) U/L Total Creatine Kinase (30-135) U/L Troponin I (0.01-0.034) ng/mL Total Protein (6.3-8.2) g/dL Albumin (3.5-5.0) g/dL Globulin (1.7-4.1) g/dL Albumin/Globulin Ratio (1.0-2.8) Amylase (30-110) U/L Lipase (23-300) U/L Urine Color [place] Urine Appearance Slightly cloudy Urine pH Not Reportable Ur Specific Rogers Not Reportable Urine Protein Not Reportable Urine Glucose (UA) Not Reportable Urine Ketones Not Reportable Urine Occult Blood Not Reportable Urine Nitrate Not Reportable Urine Bilirubin Not Reportable Urine Urobilinogen Not Reportable Ur Leukocyte Esterase Not Reportable Urine RBC 10-30/hpf H (0-5/HPF) Urine WBC 5-10/hpf H (0-5/HPF) Ur Squamous Epith Cells 0-1 /hpf Urine Bacteria Few (2-10) H (None) Ur Culture Indicated? 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 Wall enhancement of the mildly dilated left renal pelvis and ureter and mild haziness around the left ureter may be due to inflammation from recent stent or UTI. Trace air in the urinary bladder, correlate with recent procedure or recent catheterization. Notice or create drainable fluid collection. Bilateral nephrolithiasis. Full report to be scanned in. ECG Data Attestation: I personally reviewed and interpreted this ECG as follows: Interpretation: Normal sinus rhythm. Ventricular rate 86. No ST elevation or depression. No ectopy noted. [facility] Narrative Medical decision making narrative: Patient presented with abdominal pain after ureter stent removal today. Her labs were grossly normal other than a low potassium at 2.8. This was replaced in the emergency department with 40 mEq p.o. as well as IV K rider until discharge. Her BUN and creatinine were slightly elevated, though she admitted that she has only had to glasses of water to drink today. I encouraged hydration and encourage follow-up with primary care to recheck lab work. Her CT abdomen was concerning for constipation as well as normal changes expected with her ureter stent removal. Her pain was treated in the emergency department with fentanyl. She was also given Zofran. I discussed with her that she can increase her oxycodone dosing to 2-3 tabs q.4-6 hours as needed however I also discussed that this would worsen any constipation issues. I suggested use of a laxative as able. I encourage follow up with both primary care and Urology tomorrow. The patient was hemodynamically stable throughout her emergency department stay. <Conrado Tubbs, DO - Last Filed: 01/17/18 01:03> Lab Data Lab Results 01/16/18 01/16/18 01/16/18 Range/Units 20:50 20:50 20:50 WBC 9.7 (4.5-11.0) X10^3/uL RBC 4.61 (4.0-5.2) X10^6/uL Hgb 14.2 (12.0-16.0) g/dL Hct 41.5 (36-46) % MCV 90.0 (80-100) fL MCH 30.8 (26-34) PG MCHC 34.2 (30-36) % RDW 14.3 (11.6-14.8) % Plt Count 281 (150-400) X10^3/uL Neut % (Auto) 70.4 (50-75) % Lymph % (Auto) 17.8 L (25-40) % Cedar % (Auto) 10.3 (3-14) % Eos % (Auto) 0.9 L (2-4) % Baso % (Auto) 0.6 (0-2) % Neut # (Auto) 6800 H (3202-0656) /uL Sodium 137 (137-145) mmol/L Potassium 2.8 L (3.4-5.1) mmol/L Chloride 95 L (98-107) mmol/L Carbon Dioxide 27 (22-32) mmol/L BUN 17 (7-17) mg/dL Creatinine 1.10 H (0.52-1.04) mg/dL Estimated GFR 55.0 L (>60) mL/min BUN/Creatinine Ratio 15.5 (6-22) Glucose 112 H (70-100) mg/dL Calcium 9.6 (8.4-10.2) mg/dL Total Bilirubin 0.6 (0.2-1.3) mg/dL AST 29 (14-36) IU/L ALT 49 (9-52) IU/L Alkaline Phosphatase 122 (38-126) U/L Total Creatine Kinase 50 (30-135) U/L Troponin I < 0.012 (0.01-0.034) ng/mL Total Protein 7.6 (6.3-8.2) g/dL Albumin 4.4 (3.5-5.0) g/dL Globulin 3.2 (1.7-4.1) g/dL Albumin/Globulin Ratio 1.4 (1.0-2.8) Amylase 60 (30-110) U/L Lipase 55 (23-300) U/L Urine Color Urine Appearance Urine pH Ur Specific [place] Urine Protein Urine Glucose (UA) Urine Ketones Urine Occult Blood Urine Nitrate Urine Bilirubin Urine Urobilinogen Ur Leukocyte Esterase Urine RBC (0-5/HPF) Urine WBC (0-5/HPF) Ur Squamous Epith Cells Urine Bacteria (None) Ur Culture Indicated? Micro UA Comment Urine Test Negative (Negative) 01/16/18 Range/Units 20:50 WBC (4.5-11.0) X10^3/uL RBC (4.0-5.2) X10^6/uL Hgb (12.0-16.0) g/dL Hct (36-46) % MCV (80-100) fL MCH (26-34) PG MCHC (30-36) % RDW (11.6-14.8) % Plt Count (150-400) X10^3/uL Neut % (Auto) (50-75) % Lymph % (Auto) (25-40) % Cedar % (Auto) (3-14) % Eos % (Auto) (2-4) % Baso % (Auto) (0-2) % Neut # (Auto) (1127-0325) /uL Sodium (137-145) mmol/L Potassium (3.4-5.1) mmol/L Chloride (98-107) mmol/L Carbon Dioxide (22-32) mmol/L BUN (7-17) mg/dL Creatinine (0.52-1.04) mg/dL Estimated GFR (>60) mL/min BUN/Creatinine Ratio (6-22) Glucose (70-100) mg/dL Calcium (8.4-10.2) mg/dL Total Bilirubin (0.2-1.3) mg/dL AST (14-36) IU/L ALT (9-52) IU/L Alkaline Phosphatase (38-126) U/L Total Creatine Kinase (30-135) U/L Troponin I (0.01-0.034) ng/mL Total Protein (6.3-8.2) g/dL Albumin (3.5-5.0) g/dL Globulin (1.7-4.1) g/dL Albumin/Globulin Ratio (1.0-2.8) Amylase (30-110) U/L Lipase (23-300) U/L Urine Color [place] Urine Appearance Slightly cloudy Urine pH Not Reportable Ur Specific Rogers Not Reportable Urine Protein Not Reportable Urine Glucose (UA) Not Reportable Urine Ketones Not Reportable Urine Occult Blood Not Reportable Urine Nitrate Not Reportable Urine Bilirubin Not Reportable Urine Urobilinogen Not Reportable Ur Leukocyte Esterase Not Reportable Urine RBC 10-30/hpf H (0-5/HPF) Urine WBC 5-10/hpf H (0-5/HPF) Ur Squamous Epith Cells 0-1 /hpf Urine Bacteria Few (2-10) H (None) Ur Culture Indicated? Specimen cultured Micro UA Comment Not Reportable Urine Test (Negative) Discharge Plan Departure Patient Disposition: Home, Self-Care Clinical Impression: Acute hypokalemia, Constipation, Abdominal pain Discharge Date/Time: 01/17/18 00:38 Interventions: ED Discharge Assessment Last Done: 01/17/18 00:37 Instructions: DI for Abdominal Pain-Adult, DI for Constipation, DI for Hypokalemia Activity Restrictions/Additional Instructions: Today you came in to be evaluated for abdominal pain after your procedure. Your urine was very concentrated and showed some signs of infection. Your urine was sent for culture. Please keep taking the antibiotics as previously prescribed. Your kidney labs were slightly elevated compared to the last time. They were not critical, however I would like them to be rechecked. They could be due to dehydration. You also had a critically low potassium. We replaced in the emergency department with a dose orally as well as IV. I have given you a prescription for another dose tomorrow. Please take this. Please follow-up with her primary care provider for lab recheck. I would like you to call them tomorrow regarding this and everything else going on. The CT scan showed constipation and normal changes given the procedure that you had. Please be aware that opiates will make you constipated. This can lead to severe abdominal pain. I have given you some information on constipation. Not drinking enough fluids can also make you constipated. It might be a good idea for you to take some stool softener or a fiber laxative. You can increase her oxycodone dosing to 2-3 five mg tabs every 4-6 hours. This will be more constipating. It might worsen your abdominal pain. I encourage you to follow up with your primary care provider as well as Urology tomorrow. Prescriptions: New potassium chloride 20 mEq packet 40 meq PO DAILY Qty: 2 RF: 0 No Action omeprazole 20 MG tablet,delayed release (DR/EC) 20 mg PO HS Qty: 90 RF: 3 nystatin 15 GM ointment 1 alyssa Topical BID Qty: 15 RF: 3 triamcinolone acetonide [Triderm] 0.1 % cream 1 alyssa Topical BID Qty: 30 RF: 3 amitriptyline 50 MG tablet 50 mg PO QDAY Qty: 90 RF: 3 lamotrigine 200 MG tablet 200 mg PO QDAY Qty: 90 RF: 2 venlafaxine 75 mg tablet extended release 24hr 225 mg PO Q DAY Qty: 180 RF: 3 tamsulosin [Flomax] 0.4 mg capsule,extended release 24hr 0.4 mg PO DAILY Qty: 14 RF: 0 oxycodone 5 mg capsule 5 mg PO Q4-6H PRN (Reason: pain) Qty: 10 RF: 0 tramadol 50 mg tablet 50 mg PO Q6H PRN (Reason: pain) Qty: 15 RF: 0 Referrals: Nicole Bain MD [Primary Care Provider] - <Conrado Tubbs DO - Last Filed: 01/17/18 01:03> [facility] ED Attending Giulia Attestation: I was available for consultation during this patient's emergency department encounter
[2018-01-16 22:25] VITALS: BP 155/91; PULSE 89; RESP 10; O2SAT 100
[2018-01-16] MEDS: POTASSIUM CHLORIDE 60 MEQ in SODIUM CHLORIDE 0.9% 500 ML 88.333 ML IV (22:30)
[2018-01-16] MEDS: POTASSIUM CHLORIDE 20 MEQ/15 ML UDC 40 MEQ PO (23:36)
[2018-01-16] MEDS: fentaNYL 100 MCG/2 ML INJ IV (23:36)
[2018-01-17] MEDS: FLEETS ENEMA 1 EACH PR (00:08)
[2018-01-17 00:37] VITALS: BP 135/75; PULSE 85; RESP 16; TEMP 37; O2SAT 100
== END 2018-01-17 00:38 | disposition home or self-care (01) ==
PROVIDERS: Emergency Provider Nurse Practitioner Family; Family Provider Family Medicine; PCP Family Medicine
DX: E87.6 Hypokalemia (principal); K59.00 Constipation, unspecified; R10.9 Unspecified abdominal pain
CPT/HCPCS: 36415; 36591; 74177; 80053; 81001; 81025; 82150; 82550; 82553; 83690; 84484; 85025; 87086; 93005; 93010; 96361; 96365; 96366; 96375; 96376; 99283; 99285; J1885; J2405; J3010; J3480; Q9967

== ENCOUNTER → 2018-01-18 10:15 | Outpatient (CLI) | payer OTHER, SELFPAY ==
[2018-01-18 10:53] LABS: BUN Creatinine Ratio 14.4 (6-22); Blood Urea Nitrogen 13 mg/dL (7-17); Calcium 9.6 mg/dL (8.4-10.2); Carbon Dioxide 31 mmol/L (22-32); Chloride 102 mmol/L (98-107); Estimated Glomerular Filt Rate > 60.0 mL/min (>60); Glucose 116 mg/dL (70-100); HEMOLYSIS < 15 (0-50); Potassium 4.2 mmol/L (3.4-5.1); Sodium 143 mmol/L (137-145)
== END ==
PROVIDERS: Family Provider Family Medicine; PCP Family Medicine; Visit Provider Registered Nurse
DX: E87.6 Hypokalemia (principal); R79.89 Other specified abnormal findings of blood chemistry
CPT/HCPCS: 36415; 80048

== ENCOUNTER 2018-06-01 11:15 | Outpatient (RCR) | payer OTHER, SELFPAY ==
--- NOTE | 2018-05-22 18:01 | PT.OIE ---
Current Diagnoses Pain in right knee (05/22/18) Pain in left knee (05/22/18) Low back pain (05/22/18) Past Medical History (Last Reviewed 04/25/18 @ 12:50 by Dwaine Blandon MD) Anxiety (Chronic) Depression (Chronic) Kidney stones (Resolved) Stress fracture (Resolved) Vaginal delivery (Resolved) Past Surgical History (Last Reviewed 04/25/18 @ 12:50 by Dwaine Blandon MD) History of cholecystectomy (Resolved) History of endoscopic retrograde cholangiopancreatography (Resolved) History of hysterectomy leaving cervix intact (Resolved) History of rectal sphincterotomy (Resolved) History of right oophorectomy (Resolved) History of tonsillectomy (Resolved) Provider Visit Care Team Role Provider Type Nicole Bain MD Family Provider Physician Specialty: Family Practice Address: [address] [place] [address] Email: [email or web address] Attending Provider Advanced Sales Operations Consultant Primary Care Provider Specialty: Medical Address: [address] [place] [address] Email: Physical Therapy Initial Evaluation PT-OP-A Visit Information Start: 05/22/18 17:17 Freq: Status: Active Protocol: Document 05/22/18 16:30 HH (Rec: 05/22/18 18:01 [email or web address]) Out-Patient Physical Therapy Visit Information Visit Information Visit Type Initial Evaluation Visit Start Time 16:00 Visit Stop Time 16:45 Total Visit Minutes 45 Visit Number 1 Number of TOWING PILOT Visits 0 Evaluation Information Evaluation Date 05/22/18 PT-OP-B Current Condition Start: 05/22/18 17:17 Freq: Status: Active Protocol: Document 05/22/18 16:30 HH (Rec: 05/22/18 18:01 [email or web address]) Current Condition History of Current Condition Onset Date Chronic >20 years ago Current Complaints Chronic LBP and bilateral knee pain History of Current Condition Pt is a 42 yo female who c/o chronic LBP 5/10 since 20 years ago. Pt also received bariatric sx recently. Pt c/o her symptoms get worse since this February and she does not know why. Pt reports pain gets worse most daily activities such as walking, sitting and standing along with any trunk related movements. She states trunk flexion tends to make her feel better. she also c/o chronic B knee pain R> L. Prior Treatments and Tests Pt states she received PT before and that did not help. Treatment Goals Patient/Caregiver Goals To be able to have new home exercise program to increase her overall strength to be pain free for daily activities. to lose weight Prior Functional Status Baseline Function- ADL's Independent Baseline Function- Mobility Independent Current Functional Impairments (Reported) Functional Limitations- ADL's Pain during mobility Functional Limitations- Mobility/Gait Pain during mobility Personal Factors Other Personal Factors That May Effect depression, SOD, morbid Therapy/Recovery obesity PT-OP-C Subjective Start: 05/22/18 17:17 Freq: Status: Active Protocol: Document 05/22/18 16:30 HH (Rec: 05/22/18 18:01 HH [email or web address]) Patient Questionnaires Lower Extremity Functional Scale LEFS Score 34 LEFS Impairment 40 to 59% Impaired (Score 32- 47) Oswestry Low Back Index Oswestry Impairment 20 to 39% Impaired (Score 20- 39) OP-PT Pain Assessment Location Bilateral Back Intensity 6 Scale Used Numeric (1 - 10) Description Dull Frequency Constant Pain Aggravating Factors Position Changing Position ADL's Activity Exercise Standing Sitting Walking Lifting Other Pain Aggravating Factors Trunk extension and lateral flexion to R Other Pain Alleviating Factors Trunk flexion PT-OP-F Manual Assessment Start: 05/22/18 17:17 Freq: Status: Active Protocol: Document 05/22/18 16:30 HH (Rec: 05/22/18 18:01 HH [email or web address]) Manual Assessments Soft Tissue Assessment Soft Tissue Mobility Assessment Significant tenderness at lumbar paraspinals PT-OP-J Posture/Palpation/Skin Start: 05/22/18 17:17 Freq: Status: Active Protocol: Document 05/22/18 16:30 HH (Rec: 05/22/18 18:01 HH [email or web address]) Posture Evaluation Position Standing Evaluation View Lateral T-Spine Posture Increased Kyphosis L-Spine Posture Increased Lordosis Shoulder Posture (L) Rounded (R) Rounded Scapula Posture (L) Protracted (R) Protracted Pelvis Posture Anteriorly Tilted PT-OP-K Range of Motion Start: 05/22/18 17:17 Freq: Status: Active Protocol: Document 05/22/18 16:30 HH (Rec: 05/22/18 18:01 [email or web address]) Lumbar Spine Range of Motion Lumbar Spine Percentage Testing Position Standing Flexion 100 Extension 10 Lateral Flexion Left 40 Lateral Flexion Right 40 ROM Limitations Pain Comments Pt PT-OP-M Strength Start: 05/22/18 17:17 Freq: Status: Active Protocol: Document 05/22/18 16:30 HH (Rec: 05/22/18 18:01 [email or web address]) Trunk Strength Trunk Manual Muscle Testing Testing Position Sitting Flexion 4+ Good+ Extension 3+ Fair+ Rotation Left 4- Good- Rotation Right 4- Good- Core Stabilization Pt presents difficulty engaging abdominal musculature during pelvic tilt and bug exercise PT-OP-Q Treatments Start: 05/22/18 17:17 Freq: Status: Active Protocol: Document 05/22/18 16:30 HH (Rec: 05/22/18 18:01 [email or web address]) Therapeutic Exercises Supine Exercises 1 Supine Exercise Name bug Side right Reps/Minutes 10 Standing Exercises 1 Standing Exercise Name pelvic tilt Reps/Minutes 10 Neuro Re-Education Treatment Other Activities 1 Details Seated isometric trunk extension Comments MET iso hold for 5 secs at painful range PT-OP-T Assessment and Plan Start: 05/22/18 17:17 Freq: Status: Active Protocol: Document 05/22/18 16:30 HH (Rec: 05/22/18 18:01 [email or web address]) Physical Therapy Assessment Rehab Potential Rehabilitation Potential Good Evaluation Complexity Number of Personal Factors/Comorbidities 3 or More Number of Body Systems Impaired 3 Clinical Presentation at Evaluation Stable Impairments Impairments Activity Tolerance Functional Activities Functional Mobility Pain Posture Strength Goals Three Impairment strength Short Term Goal (STG) increase seated trunk ext by 1 /2 MMT grade STG Duration 2 weeks Director Special Education Goal (LTG) increase seated trunk ext by 1 MMT grade LTG Duration 4 weeks Two Impairment ROM Short Term Goal (STG) increase trunk extension ROM by 20 % STG Duration 2 weeks [facility] Goal (LTG) increase trunk extension ROM by 40 % LTG Duration 4 weeks One Impairment ADLs Short Term Goal (STG) reduce LBP by 2 points during mobility such as walking, standing, sitting. STG Duration 2 weeks Director Special Education Goal (LTG) reduce LBP by 4 points during mobility such as walking, standing, sitting. LTG Duration 4 weeks Assessment Summary Assessment Pt is a 42 yo female with chronic history of LBP and bilateral knee pain who also received bariatric sx recently . Upon assessment, pt presents significant anterior pelvic tilt in standing position along with increase thoracic kyphosis and FHP. Pt c/o increased pain with anterior pelvic tilt and trunk extension, but decrease in pain during posterior pelvic tilt and trunk flexion. Pt also denies LBP during abdominal ex such as supine deadbug and resisted lumbar flexion. Pt also reports decrease LBP after MET with resisted isometric and concentric lumbar extension. These presentations indicate pt's poor postural aware along with weak abdominal and gluteal musculature, which excessively increase mechanical stress at lumbo- sacral joints for functional activities. Pt will benefit skilled physical therapy to improve postural awareness, and overall strengthening for posterior chain and abdominal musculature. Physical Therapy Plan Frequency and Duration Frequency of Treatment 2x/Week Duration of Treatment 4 weeks Plan of Care Start Date 05/22/18 Plan of Care End Date 06/22/17 Therapeutic Interventions Therapeutic Interventions Home Exercise Program Joint Mobilizations Manual Therapy Neuromuscular Re-education Soft Tissue Mobilization Therapeutic Activities Therapeutic Exercises Modalities Cold Pack/Ice Massage Hot Packs Next Visit Focus/Plan Next Note Type Treatment Note Next Visit Plan MET on lumbar extension at painful range (iso to conc) cat camel hip hinge abdominal and gluteal strengthening
--- NOTE | 2018-05-28 12:01 | PT.OTN ---
Current Diagnoses Pain in right knee (05/28/18) Pain in left knee (05/28/18) Low back pain (05/28/18) Physical Therapy Treatment Note PT-OP-A Visit Information Start: 05/22/18 17:17 Freq: Status: Active Protocol: Document 05/28/18 09:50 LRN (Rec: 05/28/18 10:33 LRN [id number]) Out-Patient Physical Therapy Visit Information Visit Information Visit Type Treatment Note Visit Start Time 09:50 Visit Stop Time 10:40 Total Visit Minutes 50 Visit Number 3 Number of OIL WELL CABLE TOOL OPERATOR Visits 0 Evaluation Information Evaluation Date 05/22/18 PT-OP-B Current Condition Start: 05/22/18 17:17 Freq: Status: Active Protocol: Document 05/22/18 16:30 HH (Rec: 05/22/18 18:01 HH [email or web address]) Current Condition History of Current Condition Onset Date Chronic >20 years ago Current Complaints Chronic LBP and bilateral knee pain History of Current Condition Pt is a 42 yo female who c/o chronic LBP 10/19 since 20 years ago. Pt also received bariatric sx recently. Pt c/o her symptoms get worse since this February and she does not know why. Pt reports pain gets worse most daily activities such as walking, sitting and standing along with any trunk related movements. She states trunk flexion tends to make her feel better. she also c/o chronic B knee pain R> L. Prior Treatments and Tests Pt states she received PT before and that did not help. Treatment Goals Patient/Caregiver Goals To be able to have new home exercise program to increase her overall strength to be pain free for daily activities. to lose weight Prior Functional Status Baseline Function- ADL's Independent Baseline Function- Mobility Independent Current Functional Impairments (Reported) Functional Limitations- ADL's Pain during mobility Functional Limitations- Mobility/Gait Pain during mobility Personal Factors Other Personal Factors That May Effect depression, SOD, morbid Therapy/Recovery obesity PT-OP-C Subjective Start: 05/22/18 17:17 Freq: Status: Active Protocol: Document 05/28/18 09:50 LRN (Rec: 05/28/18 10:33 LRN [id number]) OP-PT Subjective Patient Comments Patient Comments States she was sore after last session across back and in the R buttock. Today sore in same. States she went to [employer] [facility] in [place] and did a lot of walking with inclines. States she was wrapping gifts on the floor over the weekend. PT-OP-F Manual Assessment Start: 05/22/18 17:17 Freq: Status: Active Protocol: Document 05/22/18 16:30 HH (Rec: 05/22/18 18:01 [email or web address]) Manual Assessments Soft Tissue Assessment Soft Tissue Mobility Assessment Significant tenderness at lumbar paraspinals PT-OP-J Posture/Palpation/Skin Start: 05/22/18 17:17 Freq: Status: Active Protocol: Document 05/22/18 16:30 HH (Rec: 05/22/18 18:01 [email or web address]) Posture Evaluation Position Standing Evaluation View Lateral T-Spine Posture Increased Kyphosis L-Spine Posture Increased Lordosis Shoulder Posture (L) Rounded (R) Rounded Scapula Posture (L) Protracted (R) Protracted Pelvis Posture Anteriorly Tilted PT-OP-K Range of Motion Start: 05/22/18 17:17 Freq: Status: Active Protocol: Document 05/22/18 16:30 HH (Rec: 05/22/18 18:01 [email or web address]) Lumbar Spine Range of Motion Lumbar Spine Percentage Testing Position Standing Flexion 100 Extension 10 Lateral Flexion Left 40 Lateral Flexion Right 40 ROM Limitations Pain Comments Pt PT-OP-M Strength Start: 05/22/18 17:17 Freq: Status: Active Protocol: Document 05/22/18 16:30 HH (Rec: 05/22/18 18:01 [email or web address]) Trunk Strength Trunk Manual Muscle Testing Testing Position Sitting Flexion 4+ Good+ Extension 3+ Fair+ Rotation Left 4- Good- Rotation Right 4- Good- Core Stabilization Pt presents difficulty engaging abdominal musculature during pelvic tilt and bug exercise PT-OP-Q Treatments Start: 05/22/18 17:17 Freq: Status: Active Protocol: Document 05/28/18 09:50 LRN (Rec: 05/28/18 10:33 LRN [id number]) Therapeutic Exercises Supine Exercises Iliopsoas stretcj Side bilateral Reps/Minutes 4' Comments Stretch from side of mat, followed by active stretc Piriformis Stretch Side right Reps/Minutes 2' 1 Supine Exercise Name DLS: Step outs Side bilateral Reps/Minutes 6' Sitting Exercises TA with knee ext Side bilateral Reps/Minutes 5 x each alternating Standing Exercises 1 Standing Exercise Name Sit to stand Reps/Minutes 10x Manual Therapy Treatment Soft Tissue Mobilization Lumbar paraspinals and QL Mobilization Type Myofascial Release Body Position Prone Comments R>L STM to Quadratus Lumborum (QL). Stretch to Quads/Ilipsoas Body Location Nathan Ilipsoas and Quads Mobilization Type Myofascial Release L coccyx Mobilization Type Sustained Pressure Intensity/Depth Moderate Body Position Prone R Piriformis Mobilization Type Strumming Intensity/Depth Moderate Body Position Prone Comments Myokinesthetic stretching Self-Care/Home Management Treatment Education Patient Education Home Exercise Program Activities Self-Care/Home Management Activities I/S pt in sitting DLS knee extension. PT-OP-R Modalities Start: 05/22/18 17:17 Freq: Status: Active Protocol: Document 05/28/18 09:50 LRN (Rec: 05/28/18 10:33 LRN [id number]) Hot Pack/Cold Pack Treatment Cold Pack Location low back Patient Position Hooklying Treatment Duration (minutes) 10 Patient Tolerance Good PT-OP-T Assessment and Plan Start: 05/22/18 17:17 Freq: Status: Active Protocol: Document 05/28/18 09:50 LRN (Rec: 05/28/18 11:43 LRN [id number]) Physical Therapy Assessment Goals Three Impairment strength Short Term Goal (STG) increase seated trunk ext by 1 /2 MMT grade STG Duration 2 weeks Brazer Helper Induction Goal (LTG) increase seated trunk ext by 1 MMT grade LTG Duration 4 weeks Two Impairment ROM Short Term Goal (STG) increase trunk extension ROM by 20 % STG Duration 2 weeks Brazer Helper Induction Goal (LTG) increase trunk extension ROM by 40 % LTG Duration 4 weeks One Impairment ADLs Short Term Goal (STG) reduce LBP by 2 points during mobility such as walking, standing, sitting. STG Duration 2 weeks Snf Goal (LTG) reduce LBP by 4 points during mobility such as walking, standing, sitting. LTG Duration 4 weeks Assessment Summary Assessment 42 yo female with chronic history of LBP and bilateral knee pain and excessive anterior pelvic tilt. Pt not able to maintain neutral spine with bug ex due to with weak abdominal and gluteal musculature and poor core stabilization. Pt has improved postural awareness. Physical Therapy Plan Frequency and Duration Frequency of Treatment 2x/Week Duration of Treatment 4 weeks Plan of Care Start Date 05/22/18 Plan of Care End Date 06/22/17 Next Visit Focus/Plan Next Note Type Treatment Note Next Visit Plan Assess for adding cat/camel stretch to HEP. Progress abdominal strengthening and start gluteal strengthening if pt able to hold neutral spine positioning. Might try lumbar stabilization ex using Shuttle for LE strengthening.
--- NOTE | 2018-06-01 13:09 | PT.OTN ---
Current Diagnoses Pain in right knee (06/01/18) Pain in left knee (06/01/18) Low back pain (06/01/18) Physical Therapy Treatment Note PT-OP-A Visit Information Start: 05/22/18 17:17 Freq: Status: Active Protocol: Document 06/01/18 11:17 LRN (Rec: 06/01/18 12:19 LRN [id number]) Out-Patient Physical Therapy Visit Information Visit Information Visit Type Treatment Note Visit Start Time 11:17 Visit Stop Time 12:00 Total Visit Minutes 43 Visit Number 4 Number of GUEST SERVICES Visits 0 Evaluation Information Evaluation Date 05/22/18 PT-OP-B Current Condition Start: 05/22/18 17:17 Freq: Status: Active Protocol: Document 05/22/18 16:30 HH (Rec: 05/22/18 18:01 HH [email or web address]) Current Condition History of Current Condition Onset Date Chronic >20 years ago Current Complaints Chronic LBP and bilateral knee pain History of Current Condition Pt is a 42 yo female who c/o chronic LBP 10/19 since 20 years ago. Pt also received bariatric sx recently. Pt c/o her symptoms get worse since this February and she does not know why. Pt reports pain gets worse most daily activities such as walking, sitting and standing along with any trunk related movements. She states trunk flexion tends to make her feel better. she also c/o chronic B knee pain R> L. Prior Treatments and Tests Pt states she received PT before and that did not help. Treatment Goals Patient/Caregiver Goals To be able to have new home exercise program to increase her overall strength to be pain free for daily activities. to lose weight Prior Functional Status Baseline Function- ADL's Independent Baseline Function- Mobility Independent Current Functional Impairments (Reported) Functional Limitations- ADL's Pain during mobility Functional Limitations- Mobility/Gait Pain during mobility Personal Factors Other Personal Factors That May Effect depression, SOD, morbid Therapy/Recovery obesity PT-OP-C Subjective Start: 05/22/18 17:17 Freq: Status: Active Protocol: Document 06/01/18 11:17 LRN (Rec: 06/01/18 12:19 LRN [id number]) OP-PT Subjective Patient Comments Patient Comments Pt requests no cryotherapy today. A little flaired up after last session, but usual . Has been working on sitting posture and posture going up/down stairs and working on hip pivoting for transfers. PT-OP-F Manual Assessment Start: 05/22/18 17:17 Freq: Status: Active Protocol: Document 05/22/18 16:30 HH (Rec: 05/22/18 18:01 HH [email or web address]) Manual Assessments Soft Tissue Assessment Soft Tissue Mobility Assessment Significant tenderness at lumbar paraspinals PT-OP-J Posture/Palpation/Skin Start: 05/22/18 17:17 Freq: Status: Active Protocol: Document 05/22/18 16:30 HH (Rec: 05/22/18 18:01 HH [email or web address]) Posture Evaluation Position Standing Evaluation View Lateral T-Spine Posture Increased Kyphosis L-Spine Posture Increased Lordosis Shoulder Posture (L) Rounded (R) Rounded Scapula Posture (L) Protracted (R) Protracted Pelvis Posture Anteriorly Tilted PT-OP-K Range of Motion Start: 05/22/18 17:17 Freq: Status: Active Protocol: Document 05/22/18 16:30 HH (Rec: 05/22/18 18:01 [email or web address]) Lumbar Spine Range of Motion Lumbar Spine Percentage Testing Position Standing Flexion 100 Extension 10 Lateral Flexion Left 40 Lateral Flexion Right 40 ROM Limitations Pain Comments Pt PT-OP-M Strength Start: 05/22/18 17:17 Freq: Status: Active Protocol: Document 05/22/18 16:30 HH (Rec: 05/22/18 18:01 [email or web address]) Trunk Strength Trunk Manual Muscle Testing Testing Position Sitting Flexion 4+ Good+ Extension 3+ Fair+ Rotation Left 4- Good- Rotation Right 4- Good- Core Stabilization Pt presents difficulty engaging abdominal musculature during pelvic tilt and bug exercise PT-OP-Q Treatments Start: 05/22/18 17:17 Freq: Status: Active Protocol: Document 06/01/18 11:17 LRN (Rec: 06/01/18 12:19 LRN [id number]) Gym Equipment Shuttle Recovery Bilateral Squats Details DLS Resistance 75# Shuttle Recovery Platform Stable Reps/Time 15x Therapeutic Exercises Supine Exercises DLS: Shoulder Flex Side bilateral Resistance 2# Equipment Used Cane with 2# weight Reps/Minutes 10 x Comments After 10 reps pt noted abdominal strengthening Iliopsoas stretcj Side bilateral Reps/Minutes 4' Comments Stretch from side of mat, followed by active stretc Piriformis Stretch Side right Reps/Minutes 2' 1 Supine Exercise Name DLS: Step outs Side bilateral Resistance 1# Reps/Minutes 5' Prone Exercises Hip ext Prone Exercise Name Hip Ext with use of sm green ball Side bilateral Reps/Minutes 5' Comments DLS ex with hip ext Standing Exercises 1 Standing Exercise Name Sit to stand Equipment Used Measuring stick, Cane Reps/Minutes 8' Comments Using different mediums to maintain neutral spine: end with cane. Other Exercises 4 pt Other Exercise Name Cat/Cow modified to Cat/ Neutral Cow with Thoracic Ext in Neutral Reps/Minutes 12 x Comments Extra time taken for training. Pt moved very slowly. Manual Therapy Treatment Soft Tissue Mobilization Lumbar paraspinals and QL Body Location Lumbar Paraspinals (low) Mobilization Type Myofascial Release Body Position Prone R Piriformis Mobilization Type Strumming Sustained Pressure Intensity/Depth Moderate Body Position Prone Comments Myokinesthetic stretching PT-OP-R Modalities Start: 05/22/18 17:17 Freq: Status: Active Protocol: Document 05/28/18 09:50 LRN (Rec: 05/28/18 10:33 LRN [id number]) Hot Pack/Cold Pack Treatment Cold Pack Location low back Patient Position Hooklying Treatment Duration (minutes) 10 Patient Tolerance Good PT-OP-T Assessment and Plan Start: 05/22/18 17:17 Freq: Status: Active Protocol: Document 06/01/18 11:17 LRN (Rec: 06/01/18 12:19 LRN [id number]) Physical Therapy Assessment Assessment Summary Assessment Pt is able to maintain neutral spine with step outs with 1# weight for 10 reps. She needs to work on endurance at home. DLS using UE's with 2# was mild abdominal work out; therefore greater resistance is needed. Physical Therapy Plan Frequency and Duration Frequency of Treatment 2x/Week Duration of Treatment 4 weeks Plan of Care Start Date 05/22/18 Plan of Care End Date 06/22/17 Next Visit Focus/Plan Next Note Type Treatment Note Next Visit Plan Progress abdominal strengthening and gluteal strengthening as long as pt is able to hold neutral spine positioning.
== END 2018-08-28 12:43 ==
LOC: PHYS 11:15
PROVIDERS: Family Provider Family Medicine; PCP Registered Nurse; Visit Provider Registered Nurse
DX: M25.561 Pain in right knee (principal); M25.562 Pain in left knee; M54.5 Low back pain
CPT/HCPCS: 97010; 97110; 97112; 97140; 97162

== ENCOUNTER 2018-06-08 09:40 | Emergency (ER) | payer OTHER, SELFPAY ==
[2018-06-08 09:47] VITALS: BP 143/102; PULSE 98; RESP 18; TEMP 36.5; O2SAT 100
--- NOTE | 2018-06-08 09:58 | ED.ABDPAIN ---
HPI - Abdominal Pain General Chief Complaint: Abdominal Pain Stated Complaint: RIGHT SIDE ABDOMINAL PAIN Time Seen by Provider: 06/08/18 09:50 Source: patient Mode of arrival: ambulatory Limitations: no limitations History of Present Illness HPI narrative: 42-year-old female who comes to the emergency department with complaint of right-sided abdominal pain patient states more in the upper abdomen radiating towards the middle, she also has pain towards the back but it radiates down patient states she has had some nausea but no vomiting. She states the nausea has not been severe. She denies any fevers. She has not had any diarrhea. She was constipated but took some Senokot for several days and is having normal soft bowel movements. She denies any urgency, dysuria or frequency. Patient has not had any vaginal discharge or bleeding. She has a history of gastric sleeve in the last year she has had her gallbladder out, she has had her sphincter of showed a cut, she has had a ureteral stent although this has been removed and had frequent kidney stones, she has had a single oophorectomy. She states Monday she had a kidney stone but that was on the left side and improved. Monday she went to the walk-in clinic because she was concerned about bladder infection but her urine was negative. 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 Related Data Home Medications Medication Instructions Recorded Confirmed amitriptyline 50 mg PO BEDTIME 06/08/18 06/08/18 lamotrigine 200 mg PO BEDTIME 06/08/18 06/08/18 omeprazole 20 mg PO BEDTIME PRN 06/08/18 06/08/18 tamsulosin [Flomax] 0.4 mg PO PRN PRN 06/08/18 06/08/18 venlafaxine 225 mg PO BEDTIME 06/08/18 06/08/18 Allergies Allergy/AdvReac Type Severity Reaction Status Date / Time codeine [CODEINE] Allergy Unknown RESPIRATORY Verified 06/03/18 10:53 DISTRESS oxybutynin Allergy Verified 06/03/18 10:53 hydromorphone [HYDROMORPHONE] AdvReac Mild RESPIRATORY Verified 06/03/18 10:53 DISTRESS morphine [MORPHINE] AdvReac Mild RESPIRATORY Verified 06/03/18 10:53 DISTRESS Review of Systems Review of Systems All systems reviewed & are unremarkable except as noted in HPI and below Constitutional Denies chills and Denies fever(s) Cardiovascular Denies chest pain and Denies dyspnea Respiratory Denies dyspnea Gastrointestinal Gastrointestinal: Reports abdominal pain, Denies hematochezia, Denies change in bowel habits, Reports constipation (resolved), Denies diarrhea, Reports nausea and Denies vomiting Genitourinary Reports as per HPI, Denies abnormal vaginal bleeding, Denies hematuria, Denies urinary frequency, Denies dysuria, Denies flank pain, Denies urinary incontinence, Denies urinary urgency and Denies vaginal discharge [facility] Medical History Anxiety (Chronic) Depression (Chronic) Kidney stones (Resolved) Stress fracture (Resolved) Vaginal delivery (Resolved) Surgical History History of cholecystectomy (Resolved) History of endoscopic retrograde cholangiopancreatography (Resolved) History of hysterectomy leaving cervix intact (Resolved) History of rectal sphincterotomy (Resolved) History of right oophorectomy (Resolved) History of tonsillectomy (Resolved) Social History Smoking Status: Former smoker Exam Narrative Exam Narrative: GENERAL: Alert and oriented x three, obese female in moderate distress. HEENT: Head normocephalic, atraumatic, EOMI, pupils reactive, face symmetric, moist mucous membranes NECK: Supple, full range of motion CARDIOVASCULAR: Regular rate and rhythm without murmurs, rubs or gallops. RESPIRATORY: Breath sounds equal bilaterally, no wheezes rales or rhonchi. ABDOMEN: Soft, nontender to palpation, not able to reproduce pain for patient. Normoactive bowel sounds all 4 quadrants. No guarding or rebound, rigidity, no mass : No CVA tenderness EXTREMITIES: Normal range of motion, no clubbing or edema. Neurovascularly intact NEUROLOGICAL: Cranial nerves II through XII grossly intact. Moving all extremities SKIN: Warm, dry, no petechiae, no rashes or lesions. Initial Vital Signs Initial Vital Signs: Vital Signs Temperature 97.7 F 06/08/18 09:47 Pulse Rate 98 H 06/08/18 09:47 Respiratory Rate 18 06/08/18 09:47 Blood Pressure 143/102 H 06/08/18 09:47 Pulse Oximetry 100 06/08/18 09:47 Course Orders Ordered: ED Orders 06/08/18 10:10 Complete Blood Count AUTO DIFF Stat Comprehensive Metabolic Panel Stat Lipase Stat 06/08/18 10:33 CT abdomen pelvis w con Stat Discontinued Medications Sodium Chloride (Normal Saline 0.9%) 1,000 mls @ 1,000 mls/hr IV BOLUS ONE Stop: 06/08/18 11:03 Last Infusion: 06/08/18 11:15 Dose: 0 mls/hr Admin: 06/08/18 10:17 Dose: 1,000 mls/hr Ketorolac Tromethamine (Toradol) 30 mg IV NOW ONE Stop: 06/08/18 10:05 Last Admin: 06/08/18 10:17 Dose: 30 mg Vital Signs - 8 hr 06/08/18 11:19 Pulse Rate 89 Respiratory Rate 20 Blood Pressure [Right Arm] 122/73 Pulse Oximetry 100 MDM - Abdominal Pain Lab Data Attestation: I reviewed the patient's lab results. Result diagrams: 06/08/18 10:10 06/08/18 10:10 Lab Results 06/08/18 06/08/18 Range/Units 10:10 10:10 WBC 6.6 (4.5-11.0) X10^3/uL RBC 4.61 (4.0-5.2) X10^6/uL Hgb 14.2 (12.0-16.0) g/dL Hct 41.6 (36-46) % MCV 90.2 (80-100) fL MCH 30.9 (26-34) PG MCHC 34.2 (30-36) % RDW 12.4 (11.6-14.8) % Plt Count 263 (150-400) X10^3/uL Neut % (Auto) 58.0 (50-75) % Lymph % (Auto) 33.4 (25-40) % [place] % (Auto) 6.9 (3-14) % Eos % (Auto) 1.0 L (2-4) % Baso % (Auto) 0.7 (0-2) % Neut # (Auto) 3800 (1691-3257) /uL Sodium 139 (137-145) mmol/L Potassium 4.5 (3.4-5.1) mmol/L Chloride 102 (98-107) mmol/L Carbon Dioxide 24 (22-32) mmol/L BUN 10 (7-17) mg/dL Creatinine 0.70 (0.52-1.04) mg/dL Estimated GFR > 60.0 (>60) mL/min BUN/Creatinine Ratio 14.3 (6-22) Glucose 84 (70-100) mg/dL Calcium 9.0 (8.4-10.2) mg/dL Total Bilirubin 0.6 (0.2-1.3) mg/dL AST 29 (14-36) IU/L ALT 15 (9-52) IU/L Alkaline Phosphatase 78 (38-126) U/L Total Protein 7.4 (6.3-8.2) g/dL Albumin 4.2 (3.5-5.0) g/dL Globulin 3.2 (1.7-4.1) g/dL Albumin/Globulin Ratio 1.3 (1.0-2.8) Lipase 60 (23-300) U/L Point of care testing: Point of Care Testing Test Results Negative Urine Dip Bedside Urine Glucose Negative Bedside Urine Bilirubin - Negative Bedside Urine Ketone - Negative Urine Specific [place] 1.015 Bedside Urine Occult Blood - Negative Bedside Urine pH 6.5 Bedside Urine Protein - Negative Bedside Urine Urobilinogen - Negative Bedside Urine Nitrite - Negative Bedside Urine Leukocytes - Negative Esterase Imaging Data CT scan - abdomen: Radiologist's impression: [address] [address] [address] Scan Report Signed Patient: Renae Gramajo MR#: [id number] : 1975 Acct:[id number] Age/Sex: 42 / F Date of Service: 06/08/18 Loc: ED Accession Number: [id number] Procedure: CT abdomen pelvis w con Ordering Provider: Sulma Stern D.O. PROCEDURE: CT ABDOMEN PELVIS W CON INDICATIONS: right abd pain, upper and lower, multiple abd surgeries TECHNIQUE: After the administration of oral and intravenous contrast, 5 mm thick sections acquired from the diaphragms to the symphysis. 5 mm thick coronal and sagittal reformats were performed. For radiation dose reduction, the following was used: automated exposure control, adjustment of mA and/or kV according to patient size. COMPARISON: [facility], CT, CT ABDOMEN PELVIS W CON, 01/16/2018, 21:16. [facility], CT, ABDOMEN/PELVIS WITH CONTRAST, 06/10/2016, 14:19. FINDINGS: Image quality: Excellent. ABDOMEN: Lung bases: Lung bases are clear. Heart size is normal. Solid organs: Liver is normal in size and enhancement. Gallbladder is surgically absent. Biliary system is non-dilated. Pancreas enhances normally. Spleen is normal in size and enhancement. No adrenal nodules. Kidneys are normal in size and enhancement, without hydronephrosis. Peritoneum and bowel: Stomach, small bowel, and colon loops are normal in caliber and wall thickness. No free fluid or air. There is a surgical staple line along the lesser curvature of the stomach, that evidence of operative complication, indicating likely the air root. Nodes and vessels: No retroperitoneal or mesenteric adenopathy. Aorta and inferior vena cava are normal in caliber. Miscellaneous: No ventral hernias. PELVIS: Genitourinary: Bladder wall thickness is normal. Miscellaneous: No inguinal hernias or adenopathy. Bones: No suspicious bony lesions. No vertebral body compression fractures. IMPRESSION: Prior cholecystectomy, prior gastric reduction surgery. There is no active inflammation found, no suspicion for underlying infection or neoplasm is seen. Source of current symptoms is not found. Dictated by: Daniele Paredes M.D. on 06/08/2018 at 11:01 Approved by: Daniele Paredes M.D. on 06/08/2018 at 11:16 [facility] Narrative Medical decision making narrative: Patient's lab work, urine and CT do not show any acute process. Patient is quite uncomfortable. She does not tolerate narcotics well secondary to sphincter Mirza dysfunction. Patient has had a sphincterotomy in the past. She and I discussed potential causes although no clear source was found. She is comfortable returning home. She is still uncomfortable but has pain medications at home. She was concerned about taking any additional narcotics and constipation and we discussed. Also discussed making sure she is fully hydrated. Patient is comfortable with this plan. She and I discussed reasons to return and signs and symptoms to watch for. She has follow-up. Discharge Plan Departure Patient Disposition: Home Clinical Impression: Abdominal pain Discharge Date/Time: 06/08/18 11:47 Interventions: ED Discharge Assessment Last Done: 06/08/18 11:46 Activity Restrictions/Additional Instructions: Follow up with your physician for recheck in the next few days. Take your home pain medication as prescribed I would recommend that you take a stool softener either Colace once or twice daily or Senokot if you have this at home at any time you are taking narcotic pain medications. Also make sure that your drinking plenty of fluids to help prevent constipation. Return to the emergency department for fevers, intractable abdominal pain, persistent vomiting, passing out, black or bloody stools or new or concerning symptoms. Prescriptions: No Action lamotrigine 200 mg tablet 200 mg PO BEDTIME RF: 0 amitriptyline 50 mg tablet 50 mg PO BEDTIME RF: 0 venlafaxine 75 mg tablet extended release 24hr 225 mg PO BEDTIME RF: 0 tamsulosin [Flomax] 0.4 mg capsule 0.4 mg PO PRN PRN (Reason: unknown) RF: 0 omeprazole 20 MG tablet,delayed release (DR/EC) 20 mg PO BEDTIME PRN (Reason: Acid Reflux) RF: 0 Referrals: Shani Smith ARNP [Primary Care Provider] -
[2018-06-08] MEDS: KETOROLAC 60 MG/2 ML VIAL 30 MG IV (10:17)
[2018-06-08] MEDS: SODIUM CHLORIDE 0.9% 1,000 ML 1000 ML IV (10:17)
[2018-06-08 10:21] LABS: Add Manual Diff / Slide Review NO; Basophils Percent Auto 0.7 % (0-2); Hematocrit 41.6 % (36-46); Hemoglobin 14.2 g/dL (12.0-16.0); Lymphocytes Percent Auto 33.4 % (25-40); Mean Corpuscular HGB Conc 34.2 % (30-36); Mean Corpuscular Hemoglobin 30.9 PG (26-34); Mean Corpuscular Volume 90.2 fL (80-100); Monocytes Percent Auto 6.9 % (3-14); Neutrophils Absolute Auto 3800 /uL (1500-7000); Platelet Count 263 X10^3/uL (150-400); Red Blood Cell Count 4.61 X10^6/uL (4.0-5.2); Red Cell Distribution Width 12.4 % (11.6-14.8); White Blood Cell Count 6.6 X10^3/uL (4.5-11.0)
--- NOTE | 2018-06-08 10:33 | DI.CT.S_ITS ---
PROCEDURE: CT ABDOMEN PELVIS W CON INDICATIONS: right abd pain, upper and lower, multiple abd surgeries TECHNIQUE: After the administration of oral and intravenous contrast, 5 mm thick sections acquired from the diaphragms to the symphysis. 5 mm thick coronal and sagittal reformats were performed. For radiation dose reduction, the following was used: automated exposure control, adjustment of mA and/or kV according to patient size. COMPARISON: [facility], CT, CT ABDOMEN PELVIS W CON, 01/16/2018, 21:16. [facility], CT, ABDOMEN/PELVIS WITH CONTRAST, 06/10/2016, 14:19. FINDINGS: Image quality: Excellent. ABDOMEN: Lung bases: Lung bases are clear. Heart size is normal. Solid organs: Liver is normal in size and enhancement. Gallbladder is surgically absent. Biliary system is non-dilated. Pancreas enhances normally. Spleen is normal in size and enhancement. No adrenal nodules. Kidneys are normal in size and enhancement, without hydronephrosis. Peritoneum and bowel: Stomach, small bowel, and colon loops are normal in caliber and wall thickness. No free fluid or air. There is a surgical staple line along the lesser curvature of the stomach, that evidence of operative complication, indicating likely the air root. Nodes and vessels: No retroperitoneal or mesenteric adenopathy. Aorta and inferior vena cava are normal in caliber. Miscellaneous: No ventral hernias. PELVIS: Genitourinary: Bladder wall thickness is normal. Miscellaneous: No inguinal hernias or adenopathy. Bones: No suspicious bony lesions. No vertebral body compression fractures. IMPRESSION: Prior cholecystectomy, prior gastric reduction surgery. There is no active inflammation found, no suspicion for underlying infection or neoplasm is seen. Source of current symptoms is not found. Dictated by: Daniele Paredes M.D. on 06/08/2018 at 11:01 Approved by: Daniele Paredes M.D. on 06/08/2018 at 11:16
[2018-06-08 10:36] LABS: Alanine Aminotransferase 15 IU/L (9-52); Albumin 4.2 g/dL (3.5-5.0); Albumin Globulin Ratio 1.3 (1.0-2.8); Alkaline Phosphatase 78 U/L (38-126); Aspartate Aminotransferase 29 IU/L (14-36); BUN Creatinine Ratio 14.3 (6-22); Bilirubin Total 0.6 mg/dL (0.2-1.3); Blood Urea Nitrogen 10 mg/dL (7-17); Carbon Dioxide 24 mmol/L (22-32); Chloride 102 mmol/L (98-107); Estimated Glomerular Filt Rate > 60.0 mL/min (>60); Globulin 3.2 g/dL (1.7-4.1); Glucose 84 mg/dL (70-100); HEMOLYSIS 104 (0-50); Lipase 60 U/L (23-300); Potassium 4.5 mmol/L (3.4-5.1); Sodium 139 mmol/L (137-145); Total Protein 7.4 g/dL (6.3-8.2)
--- NOTE | 2018-06-08 11:08 | PC.NURSE ---
Upon pt returned from CT, reports pain still about 4/10 but pt declines additional medication at this time.
[2018-06-08 11:19] VITALS: BP 122/73; PULSE 89; RESP 20; O2SAT 100
== END 2018-06-08 11:47 | disposition home or self-care (01) ==
PROVIDERS: Emergency Provider Emergency Medicine; PCP Registered Nurse
DX: R10.9 Unspecified abdominal pain (principal)
CPT/HCPCS: 36591; 74177; 80053; 81003; 81025; 83690; 85025; 96361; 96374; 99283; 99285; J1885; Q9967

== ENCOUNTER → 2019-02-06 13:38 | Outpatient (CLI) | payer OTHER, SELFPAY ==
[2019-02-06 15:07] LABS: C-Reactive Protein Quant 0.9 mg/dL (<1.0); Erythrocyte Sedimentation Rate 11 MM/HR (0-20)
== END ==
PROVIDERS: PCP Registered Nurse; Visit Provider Registered Nurse
DX: R53.83 Other fatigue (principal)
CPT/HCPCS: 36415; 85651; 86140

== ENCOUNTER → 2019-02-12 13:39 | Outpatient (CLI) | payer OTHER, SELFPAY ==
[2019-02-12 14:35] LABS: Add Manual Diff / Slide Review NO; Basophils Absolute Auto 100 /uL (0-100); Basophils Percent Auto 0.6 % (0-2); Eosinophils Absolute Auto 100 /uL (0-450); Eosinophils Percent Auto 1.3 % (2-4); Hematocrit 44.5 % (36-46); Hemoglobin 15.1 g/dL (12.0-16.0); Lymphocytes Absolute Auto 2800 /uL (1100-4500); Mean Corpuscular HGB Conc 33.9 % (30-36); Mean Corpuscular Hemoglobin 30.8 PG (26-34); Mean Corpuscular Volume 90.8 fL (80-100); Monocytes Absolute Auto 500 /uL (0-900); Monocytes Percent Auto 6.6 % (3-14); Neutrophils Absolute Auto 4700 /uL (1500-7000); Neutrophils Percent Auto 57.5 % (50-75); Platelet Count 319 X10^3/uL (150-400); Red Cell Distribution Width 12.7 % (11.6-14.8); White Blood Cell Count 8.2 X10^3/uL (4.5-11.0)
[2019-02-12 15:09] LABS: Alanine Aminotransferase 16 IU/L (9-52); Albumin 4.4 g/dL (3.5-5.0); Albumin Globulin Ratio 1.4 (1.0-2.8); Alkaline Phosphatase 120 U/L (38-126); Aspartate Aminotransferase 25 IU/L (14-36); BUN Creatinine Ratio 26.3 (6-22); Bilirubin Total 0.3 mg/dL (0.2-1.3); Blood Urea Nitrogen 21 mg/dL (7-17); Calcium 9.8 mg/dL (8.4-10.2); Carbon Dioxide 27 mmol/L (22-32); Chloride 102 mmol/L (98-107); Estimated Glomerular Filt Rate > 60.0 mL/min (>60); Globulin 3.2 g/dL (1.7-4.1); Glucose 90 mg/dL (70-100); HEMOLYSIS 18 (0-50); Potassium 4.3 mmol/L (3.4-5.1); Sodium 139 mmol/L (137-145); Total Protein 7.6 g/dL (6.3-8.2)
[2019-02-12 15:43] LABS: TSH w/ Reflex to FT4 2.16 uIU/mL (0.47-4.68)
== END ==
PROVIDERS: PCP Registered Nurse; Visit Provider Registered Nurse
DX: R53.83 Other fatigue (principal)
CPT/HCPCS: 36415; 80053; 84443; 85025

== ENCOUNTER → 2020-01-28 17:14 | Outpatient (CLI) | payer OTHER, SELFPAY ==
[2020-01-28 18:58] LABS: C-Reactive Protein Quant < 0.5 mg/dL (<1.0)
[2020-01-28 20:32] LABS: Erythrocyte Sedimentation Rate 6 MM/HR (0-20)
== END ==
PROVIDERS: PCP Nurse Practitioner; Referring Provider Nurse Practitioner; Visit Provider Nurse Practitioner
DX: G43.109 Migraine with aura, not intractable, without status migrainosus (principal)
CPT/HCPCS: 36415; 85651; 86140

== ENCOUNTER → 2020-02-05 09:34 | Outpatient (CLI) | payer OTHER, SELFPAY ==
--- NOTE | 2020-02-05 09:35 | DI.MRI.S_ITS ---
PROCEDURE: MR HEAD/BRAIN WO/W CON INDICATIONS: migraine TECHNIQUE: Noncontrast axial T1 spin echo, axial T2 fast spin echo, sagittal and axial FLAIR, coronal T2 fast spin echo, axial gradient echo, axial diffusion and ADC through the brain. After the administration of contrast, axial and coronal 3D VIBE or T1 spin echo with fat saturation through the brain. COMPARISON: None. FINDINGS: Image quality: Excellent. CSF Spaces: Basal cisterns are patent. No extra-axial fluid collections. Ventricles are normal in size and shape. Brain: No midline shift. No intracranial bleeds or masses. No abnormal intracranial enhancement. The brainstem appears normal. Diffusion-weighted images demonstrate no acute ischemic insults. No chronic ischemic insults. Normal intravascular flow voids are present. Skull and face: Calvarial marrow is normal in signal. Orbits appear normal. Sinuses: Sinuses and mastoids appear clear. IMPRESSION: 1. No intracranial disease process. 2. No abnormal intracranial mass or mass effect.. 3. No suspicious postcontrast enhancement. 4. No abnormal intracranial signal. Dictated by: Aimee Ponce MD, PhD on 02/05/2020 at 10:26 Approved by: Aimee Ponce MD, PhD on 02/05/2020 at 10:30
== END ==
PROVIDERS: PCP Nurse Practitioner; Referring Provider Nurse Practitioner; Visit Provider Nurse Practitioner
DX: G43.109 Migraine with aura, not intractable, without status migrainosus (principal)
CPT/HCPCS: 70553

== ENCOUNTER → 2020-02-12 11:13 | Outpatient (CLI) | payer OTHER, SELFPAY ==
[2020-02-12 11:47] LABS: Alanine Aminotransferase 16 IU/L (<35); Albumin 4.2 g/dL (3.5-5.0); Albumin Globulin Ratio 1.5 (1.0-2.8); Alkaline Phosphatase 103 U/L (38-126); Aspartate Aminotransferase 23 IU/L (14-36); Bilirubin Total 0.5 mg/dL (0.2-1.3); Bilirubin Unconjugated 0.2 mg/dL (0.0-1.1); Globulin 2.8 g/dL (1.7-4.1); HEMOLYSIS < 15 (0-50)
[2020-02-14 10:22] LABS: Lamotrigine Lamictal 1.4 ug/mL (2.0-20.0)
== END ==
PROVIDERS: PCP Nurse Practitioner; Referring Provider Psychiatry & Neurology Psychiatry; Visit Provider Psychiatry & Neurology Psychiatry
DX: F33.2 Major depressive disorder, recurrent severe without psychotic features (principal)
CPT/HCPCS: 36415; 80076; 80175

== ENCOUNTER → 2020-02-26 14:36 | Outpatient (CLI) | payer OTHER, SELFPAY ==
[2020-03-02 11:53] LABS: Lamotrigine Lamictal 4.4 ug/mL (2.0-20.0)
== END ==
PROVIDERS: PCP Nurse Practitioner; Referring Provider Nurse Practitioner; Visit Provider Psychiatry & Neurology Psychiatry
DX: F31.70 Bipolar disorder, currently in remission, most recent episode unspecified (principal)
CPT/HCPCS: 36415; 80175

== ENCOUNTER → 2020-04-10 08:37 | Outpatient (CLI) | payer OTHER, SELFPAY ==
[2020-04-13 13:13] LABS: Lamotrigine Lamictal 7.4 ug/mL (2.0-20.0)
== END ==
PROVIDERS: PCP Nurse Practitioner; Referring Provider Nurse Practitioner; Visit Provider Psychiatry & Neurology Psychiatry
DX: F33.2 Major depressive disorder, recurrent severe without psychotic features (principal)
CPT/HCPCS: 36415; 80175

== ENCOUNTER 2020-06-16 20:51 | Emergency (ER) | payer OTHER, SELFPAY ==
[2020-06-16 20:56] VITALS: BP 131/97; PULSE 89; RESP 22; TEMP 36.8; O2SAT 99
[2020-06-16 21:06] LABS: Add Manual Diff / Slide Review NO; Basophils Absolute Auto 100 /uL (0-100); Basophils Percent Auto 0.7 % (0-2); Eosinophils Absolute Auto 100 /uL (0-450); Eosinophils Percent Auto 0.6 % (2-4); Hematocrit 41.5 % (36-46); Hemoglobin 13.8 g/dL (12.0-16.0); Lymphocytes Absolute Auto 1800 /uL (1100-4500); Lymphocytes Percent Auto 16.6 % (25-40); Mean Corpuscular HGB Conc 33.2 % (30-36); Mean Corpuscular Volume 87.5 fL (80-100); Monocytes Absolute Auto 700 /uL (0-900); Monocytes Percent Auto 6.1 % (3-14); Neutrophils Absolute Auto 8400 /uL (1500-7000); Platelet Count 377 X10^3/uL (150-400); Red Blood Cell Count 4.75 X10^6/uL (4.0-5.2); Red Cell Distribution Width 12.9 % (11.6-14.8); White Blood Cell Count 11.1 X10^3/uL (4.5-11.0)
--- NOTE | 2020-06-16 21:09 | DI.CT.S_ITS ---
PROCEDURE: CT ABDOMEN PELVIS W CON INDICATIONS: upp ab pain TECHNIQUE: After the administration of intravenous contrast, 5 mm thick sections acquired from the diaphragm to the symphysis. 5 mm coronal and sagittal reformats were acquired. For radiation dose reduction, the following was used: automated exposure control, adjustment of mA and/or kV according to patient size. COMPARISON: [facility], CT, CT ABDOMEN PELVIS W CON, 06/08/2018, 10:27. FINDINGS: Image quality: Excellent. ABDOMEN: Lung bases: Lung bases are clear. Heart size is normal. Solid organs: Liver is normal in size and enhancement. Gallbladder is normal. Biliary system is non dilated. Pancreas enhances normally. Spleen is normal in size and enhancement. No adrenal nodules. Kidneys demonstrate normal size and enhancement, without hydronephrosis. Peritoneum and bowel: Status post gastrectomy. There is diffuse fluid distention of the large bowel. Air-fluid levels in the large bowel are seen. No obstructing mass or stricture is identified. There is mild fecal impaction in the rectum. Nodes and vessels: No retroperitoneal or mesenteric adenopathy by size criteria. Aorta and inferior vena cava are normal in size. Miscellaneous: No ventral hernias. PELVIS: Genitourinary: Bladder wall thickness is normal. Miscellaneous: No inguinal hernias or adenopathy. Bones: No suspicious bony lesions. No vertebral body compression fractures. IMPRESSION: Fluid distention and air-fluid levels in the large bowel. No focal obstruction is seen. Findings are likely due to fecal impaction in the rectum. Recommend follow-up x-rays to resolution. Dictated by: Osvaldo Bae M.D. on 06/16/2020 at 22:22 Approved by: Osvaldo Bae M.D. on 06/16/2020 at 22:31
[2020-06-16 21:10] LABS: INR 0.9 (0.9-1.3); Prothrombin Time 10.9 SECONDS (10.1-12.7)
[2020-06-16 21:13] LABS: PTT Partial Thromboplastin Tim 34 SECONDS (26.4-36.2)
[2020-06-16] MEDS: KETOROLAC 60 MG/2 ML VIAL 15 MG IV (21:14)
[2020-06-16 21:15] LABS: Alanine Aminotransferase 23 IU/L (<35); Albumin 4.7 g/dL (3.5-5.0); Albumin Globulin Ratio 1.3 (1.0-2.8); Alkaline Phosphatase 118 U/L (38-126); Aspartate Aminotransferase 46 IU/L (14-36); BUN Creatinine Ratio 21.3 (6-22); Bilirubin Total 0.2 mg/dL (0.2-1.3); Blood Urea Nitrogen 19 mg/dL (7-17); Calcium 9.9 mg/dL (8.4-10.2); Carbon Dioxide 32 mmol/L (22-32); Chloride 99 mmol/L (98-107); Estimated Glomerular Filt Rate > 60.0 mL/min (>60); Globulin 3.7 g/dL (1.7-4.1); Glucose 108 mg/dL (70-100); HEMOLYSIS < 15 (0-50); Lipase 96 U/L (23-300); Potassium 3.9 mmol/L (3.4-5.1); Sodium 137 mmol/L (137-145); Total Protein 8.4 g/dL (6.3-8.2)
--- NOTE | 2020-06-16 21:20 | ED_ITS ---
HPI - Abdominal Pain General Chief Complaint: Abdominal Pain Stated Complaint: upper abdominal pain Time Seen by Provider: 06/16/20 21:02 Source: patient Mode of arrival: Ambulatory History of Present Illness HPI narrative: Patient is a 44-year-old female with history of sphincter of Mirza problems cholecystectomy and gastric sleeve presenting with upper abdominal pain. She says this has happened to her before she said today it started turner ddenly it is all in her upper abdomen and epigastric area radiating around to her back. She feels nauseous at times. She has not taken anything for pain. She cannot take morphine dilaudid or NSAIDs. She feels nauseous but no vomiting Related Data Home Medications Medication Instructions Recorded Confirmed omeprazole 20 mg tablet,delayed 40 mg PO BEDTIME PRN tab 04/15/20 04/15/20 release Previous Rx's Medication Instructions Recorded bupropion HCl 150 mg 24 hr tablet, 150 mg PO QAM #90 tab MDD 450 mg 08/14/19 extended release bupropion HCl 300 mg 24 hr tablet, 300 mg PO QAM #90 tab MDD 450mg 08/14/19 extended release amitriptyline 50 mg tablet 50 mg PO BEDTIME #90 tab 01/28/20 venlafaxine 75 mg tablet,extended 225 mg PO BEDTIME #90 tab 02/07/20 release 24 hr galcanezumab-gnlm 120 mg/mL 120 mg SUBCUT QMONTH #1 ml 02/13/20 subcutaneous pen injector lamotrigine 200 mg tablet 400 mg PO BEDTIME #180 tab 03/02/20 Allergies Allergy/AdvReac Type Severity Reaction Status Date / Time codeine [CODEINE] Allergy Unknown RESPIRATORY Verified 03/02/20 11:38 DISTRESS oxybutynin Allergy Verified 03/02/20 11:38 hydromorphone [HYDROMORPHONE] AdvReac Mild RESPIRATORY Verified 03/02/20 11:38 DISTRESS morphine [MORPHINE] AdvReac Mild RESPIRATORY Verified 03/02/20 11:38 DISTRESS Review of Systems Review of Systems Narrative: GENERAL: Denies chills, fatigue, malaise, fever, sweats, travel HEENT: Denies sinus pain, ear pain, sore throat, difficulty swallowing, neck pain RESPIRATORY: Denies dyspnea, cough, wheezing, hemoptysis, sputum. CARDIOVASCULAR: Denies chest pain, palpitations, orthopnea, edema GASTROINTESTINAL: See HPI : Denies dysuria, frequency, incontinence, hematuria, urinary retention, flank pain. MUSCULOSKELETAL: Denies weakness, joint pain, or bony pain SKIN: No rash, no erythema, no pruritus NEUROLOGIC: Denies weakness, dizziness, headache, numbness, change in speech, confusion PSYCHIATRIC: No concerning psychosocial issues. 12 point review of systems is negative except for those stated above and HPI Patient History Medical History (Updated 06/17/20 @ 00:34 by April Gray DO) Anxiety Chronic fatigue syndrome with fibromyalgia Depression Dizziness Establishing care with new doctor, encounter for Fatigue History of concussion Intractable migraine with aura without status migrainosus Kidney stones Major depressive disorder, recurrent, severe w/o psychotic behavior Nausea Obstructive sleep apnea Stress fracture Vaginal delivery Surgical History History of cholecystectomy History of endoscopic retrograde cholangiopancreatography History of hysterectomy leaving cervix intact History of rectal sphincterotomy History of right oophorectomy History of tonsillectomy Family History Father Low back pain Mother Hypertension Social History Smoking Status: Former smoker Smoking Status: Former smoker alcohol intake frequency: holidays/special occasions only Substance Use Type: does not use Exam Initial Vital Signs Initial Vital Signs: Vital Signs Temperature 98.3 F 06/16/20 20:56 Pulse Rate 89 06/16/20 20:56 Respiratory Rate 22 06/16/20 20:56 Blood Pressure 131/97 H 06/16/20 20:56 Pulse Oximetry 99 06/16/20 20:56 GENERAL: Rolling in bed appears very uncomfortable and in no acute distress. HEENT: Head atraumatic,EOMI, pupils reactive, face symmetric, moist mucous membranes CARDIOVASCULAR: Regular rate and rhythm without murmurs, rubs or gallops. RESPIRATORY: Breath sounds equal bilaterally, no wheezes rales or rhonchi. ABDOMEN: Soft, tender epigastric area on left upper quadrant no guarding no rebound minimal right upper quadrant pain EXTREMITIES: Normal range of motion, no clubbing or edema. Neurovascularly intact NEUROLOGICAL: Alert and oriented x4.Normal gait and speech. Cranial nerves II through XII grossly intact. SKIN: Warm, dry, no laceration, no petechiae, no rashes or lesions. Course Orders Ordered: ED Orders 06/16/20 20:58 EKG-12 Lead Stat 06/16/20 21:00 Complete Blood Count AUTO DIFF Stat Comprehensive Metabolic Panel Stat Lipase Stat Partial Thromboplastin Time Stat Prothrombin Time INR Stat Troponin & CK Cardiac Panel Stat 06/16/20 21:09 CT abdomen pelvis w con Stat 06/17/20 00:06 Creatine Kinase Stat Discontinued Medications Fentanyl (Fentanyl 100 Mcg/2 Ml Inj) 50 mcg IV NOW ONE Stop: 06/17/20 00:18 Last Admin: 06/17/20 00:26 Dose: 50 mcg Documented by: ASTER Fentanyl (Fentanyl 100 Mcg/2 Ml Inj) 50 mcg IV NOW ONE Stop: 06/17/20 00:35 Last Admin: 06/17/20 00:39 Dose: 50 mcg Documented by: ASTER Sodium Chloride (Normal Saline 0.9%) 1,000 mls @ 1,000 mls/hr IV BOLUS ONE Stop: 06/16/20 22:28 Last Infusion: 06/16/20 23:06 Dose: 0 mls/hr Documented by: Admin: 06/16/20 21:46 Dose: 1,000 mls/hr Documented by: AAKASH Sodium Chloride (Normal Saline 0.9%) 1,000 mls @ 1,000 mls/hr IV BOLUS ONE Stop: 06/16/20 23:51 Last Infusion: 06/17/20 00:07 Dose: 0 mls/hr Documented by: Admin: 06/16/20 23:06 Dose: 1,000 mls/hr Documented by: ASTER Ketorolac Tromethamine (Ketorolac 60 Mg/2 Ml Vial) 15 mg IV NOW ONE Stop: 06/16/20 21:10 Last Admin: 06/16/20 21:14 Dose: 15 mg Documented by: ASTER Lorazepam (Lorazepam 2 Mg/Ml Inj) 1 mg IV NOW ONE Stop: 06/17/20 00:57 Last Admin: 06/17/20 00:55 Dose: 1 mg Documented by: AAKASH Lorazepam (Lorazepam 2 Mg/Ml Inj) 0.5 mg IV NOW ONE Stop: 06/17/20 01:30 Last Admin: 06/17/20 01:37 Dose: 0.5 mg Documented by: AAKASH Morphine Sulfate (Morphine 4 Mg/Ml Inj) 4 mg IV NOW ONE Stop: 06/16/20 23:43 Last Admin: 06/16/20 23:48 Dose: 4 mg Documented by: ASTER Vital Signs Vital signs: Vital Signs - 8 hr 06/16/20 20:56 06/17/20 00:22 06/17/20 01:54 Temperature 98.3 F Pulse Rate 89 79 80 Respiratory Rate 22 20 18 Blood Pressure 131/97 H 110/66 140/84 Pulse Oximetry 99 97 97 MDM - Abdominal Pain Lab Data Attestation: I reviewed the patient's lab results. Result diagrams: 06/16/20 21:00 06/16/20 21:00 Labs: Lab Results 06/16/20 06/16/20 06/16/20 Range/Units 21:00 21:00 21:00 WBC 11.1 H (4.5-11.0) X10^3/uL RBC 4.75 (4.0-5.2) X10^6/uL Hgb 13.8 (12.0-16.0) g/dL Hct 41.5 (36-46) % MCV 87.5 (80-100) fL MCH 29.0 (26-34) PG MCHC 33.2 (30-36) % RDW 12.9 (11.6-14.8) % Plt Count 377 (150-400) X10^3/uL Neut % (Auto) 76.0 H (50-75) % Lymph % (Auto) 16.6 L (25-40) % Powell % (Auto) 6.1 (3-14) % Eos % (Auto) 0.6 L (2-4) % Baso % (Auto) 0.7 (0-2) % Neut # (Auto) 8400 H (8109-5251) /uL Lymph # (Auto) 1800 (0266-3678) /uL Powell # (Auto) 700 (0-900) /uL Eos # (Auto) 100 (0-450) /uL Baso # (Auto) 100 (0-100) /uL PT 10.9 (10.1-12.7) SECONDS INR 0.9 (0.9-1.3) APTT 34 (26.4-36.2) SECONDS Sodium 137 (137-145) mmol/L Potassium 3.9 (3.4-5.1) mmol/L Chloride 99 (98-107) mmol/L Carbon Dioxide 32 (22-32) mmol/L BUN 19 H (7-17) mg/dL Creatinine 0.89 (0.52-1.04) mg/dL Estimated GFR > 60.0 (>60) mL/min BUN/Creatinine Ratio 21.3 (6-22) Glucose 108 H (70-100) mg/dL Calcium 9.9 (8.4-10.2) mg/dL Total Bilirubin 0.2 (0.2-1.3) mg/dL AST 46 H (14-36) IU/L ALT 23 (<35) IU/L Alkaline Phosphatase 118 (38-126) U/L Total Creatine Kinase (30-135) U/L CK-MB (CK-2) (<2.37) ng/mL CK-MB (CK-2) Rel Index (1.5-5.0) % Troponin I (0.01-0.034) ng/mL Total Protein 8.4 H (6.3-8.2) g/dL Albumin 4.7 (3.5-5.0) g/dL Globulin 3.7 (1.7-4.1) g/dL Albumin/Globulin Ratio 1.3 (1.0-2.8) Lipase 96 (23-300) U/L 06/16/20 06/17/20 Range/Units 21:00 00:06 WBC (4.5-11.0) X10^3/uL RBC (4.0-5.2) X10^6/uL Hgb (12.0-16.0) g/dL Hct (36-46) % MCV (80-100) fL MCH (26-34) PG MCHC (30-36) % RDW (11.6-14.8) % Plt Count (150-400) X10^3/uL Neut % (Auto) (50-75) % Lymph % (Auto) (25-40) % Powell % (Auto) (3-14) % Eos % (Auto) (2-4) % Baso % (Auto) (0-2) % Neut # (Auto) (0062-1921) /uL Lymph # (Auto) (3734-9765) /uL Powell # (Auto) (0-900) /uL Eos # (Auto) (0-450) /uL Baso # (Auto) (0-100) /uL PT (10.1-12.7) SECONDS INR (0.9-1.3) APTT (26.4-36.2) SECONDS Sodium (137-145) mmol/L Potassium (3.4-5.1) mmol/L Chloride (98-107) mmol/L Carbon Dioxide (22-32) mmol/L BUN (7-17) mg/dL Creatinine (0.52-1.04) mg/dL Estimated GFR (>60) mL/min BUN/Creatinine Ratio (6-22) Glucose (70-100) mg/dL Calcium (8.4-10.2) mg/dL Total Bilirubin (0.2-1.3) mg/dL AST (14-36) IU/L ALT (<35) IU/L Alkaline Phosphatase (38-126) U/L Total Creatine Kinase 1428 H 1138 H (30-135) U/L CK-MB (CK-2) 3.49 H (<2.37) ng/mL CK-MB (CK-2) Rel Index 0.2 L (1.5-5.0) % Troponin I < 0.012 (0.01-0.034) ng/mL Total Protein (6.3-8.2) g/dL Albumin (3.5-5.0) g/dL Globulin (1.7-4.1) g/dL Albumin/Globulin Ratio (1.0-2.8) Lipase (23-300) U/L Point of care testing: Point of Care Testing Test Results Negative Urine Dip Bedside Urine Glucose Negative Bedside Urine Bilirubin - Negative Bedside Urine Ketone - Negative Urine Specific [place] 1.005 Bedside Urine Occult Blood - Negative Bedside Urine pH 8.5 Bedside Urine Protein - Negative Bedside Urine Urobilinogen - Negative Bedside Urine Nitrite - Negative Bedside Urine Leukocytes - Negative Esterase Imaging Data CT scan - abdomen/pelvis: Radiologist's Impression: PROCEDURE: CT ABDOMEN PELVIS W CON INDICATIONS: upp ab pain TECHNIQUE: After the administration of intravenous contrast, 5 mm thick sections acquired from the diaphragm to the symphysis. 5 mm coronal and sagittal reformats were acquired. For radiation dose reduction, the following was used: automated exposure control, adjustment of mA and/or kV according to patient size. COMPARISON: [facility], CT, CT ABDOMEN PELVIS W CON, 06/08/2018, 10:27. FINDINGS: Image quality: Excellent. ABDOMEN: Lung bases: Lung bases are clear. Heart size is normal. Solid organs: Liver is normal in size and enhancement. Gallbladder is normal. Biliary system is non dilated. Pancreas enhances normally. Spleen is normal in size an d enhancement. No adrenal nodules. Kidneys demonstrate normal size and enhancement, without hydronephrosis. Peritoneum and bowel: Status post gastrectomy. There is diffuse fluid distention of the large bowel. Air-fluid levels in the large bowel are seen. No obstructing mass or stricture is identified. There is mild fecal impaction in the rectum. Nodes and vessels: No retroperitoneal or mesenteric adenopathy by size criteria. Aorta and inferior vena cava are normal in size. Miscellaneous: No ventral hernias. PELVIS: Genitourinary: Bladder wall thickness is normal. Miscellaneous: No inguinal hernias or adenopathy. Bones: No suspicious bony lesions. No vertebral body compression fractures. IMPRESSION: Fluid distention and air-fluid levels in the large bowel. No focal obstruction is seen. Findings are likely due to fecal impaction in the rectum. Recommend follow-up x-rays to resolution. Dictated by: Osvaldo Bae M.D. on 06/16/2020 at 22:22 Approved by: Osvaldo Bae M.D. on 06/16/2020 at 22:31 ECG Data Attestation: I personally reviewed and interpreted this ECG as follows: Prior ECG tracings: available for review Interpretation: 70 p.r. interval 154 QRS [address] changes a Q-wave noted in lead 3 similar to previous EKG in 2018 MDM Narrative Medical decision making narrative: Patient is found to have elevated CPK of [address] and other blood work her overall reassuring. She is given 2 L of IV fluids. Patient requested that she have morphine despite it possibly aggravating her sphincter of mirza. About 10 minutes after she received the morphine she started having increasing pain. She is given a dose of fentanyl. She is given a 2nd dose of fentanyl along with Ativan. She continues to remain uncomfortable. But she is ambulatory to the restroom to have another bowel movement. She feels like it continue to use to spasm requesting a 2nd dose of Ativan go home. I explained to her that there is not much other medications I can not give her, she understands this. To does not want Zofran at home. Repeat CPK has decreased after 2 L of IV fluids.. She had multiple non bloody bowel movements in the ED. at this time conservative management and treatment home. I discussed all findings with the patient, Education has been performed regarding treatment plan, diagnosis, warning signs and symptoms and all concerns have been addressed. Verbally agree with and understood all of the above. Discharge Plan Departure Patient Disposition: Home Clinical Impression: Abdominal pain, Elevated CPK Instructions: DI for Abdominal Pain-Adult Activity Restrictions/Additional Instructions: *You have been diagnosed with abdominal pain, elevated CPK *What to do: Increase fluid intake. Your abdominal pain is likely related to her sphincter of OD problem. Certainly morphine is not a good medication choice for you. Your CT scan did show that you are constipated. *Continue to take medications as directed Tylenol 650 mg every 4-6 hours if needed for [id number] pain *Follow up with your primary care provider in 2-3 days *Return to ER if you should have increasing abdominal pain persistent vomiting or any new, worsening or concerning symptoms Prescriptions: No Action lamotrigine 200 mg tablet 400 mg PO BEDTIME Qty: 180 RF: 3 bupropion HCl 150 mg tablet extended release 24 hr 150 mg PO QAM MDD 450 mg Qty: 90 RF: 3 bupropion HCl 300 mg tablet extended release 24 hr 300 mg PO QAM MDD 450mg Qty: 90 RF: 3 venlafaxine 75 mg tablet extended release 24hr 225 mg PO BEDTIME Qty: 90 RF: 5 Emgality Pen 120 mg/mL pen injector 120 mg SUBCUT QMONTH Qty: 1 RF: 6 amitriptyline 50 mg tablet 50 mg PO BEDTIME Qty: 90 RF: 3 omeprazole 20 mg tablet,delayed release (DR/EC) 40 mg PO BEDTIME PRN (Reason: Acid Reflux) RF: 0 Referrals: Tracie Marks ARNP [Primary Care Provider] -
[2020-06-16 21:22] LABS: Creatine Kinase 1428 U/L (30-135)
[2020-06-16 21:35] LABS: Troponin I < 0.012 ng/mL (0.01-0.034)
[2020-06-16 21:38] LABS: CKMB % Relative Index 0.2 % (1.5-5.0); Creatine Kinase MB 3.49 ng/mL (<2.37)
[2020-06-16] MEDS: SODIUM CHLORIDE 0.9% 1,000 ML 1000 ML IV ×2 (21:46→23:06)
[2020-06-16] MEDS: MORPHINE 4 MG/ML INJ IV (23:48)
[2020-06-17 00:22] VITALS: BP 110/66; PULSE 79; RESP 20; O2SAT 97
[2020-06-17 00:24] LABS: Creatine Kinase 1138 U/L (30-135)
[2020-06-17] MEDS: fentaNYL 100 MCG/2 ML INJ 50 MCG IV ×2 (00:26→00:39)
[2020-06-17] MEDS: LORazepam 2 MG/ML INJ 1 MG IV (00:55)
--- NOTE | 2020-06-17 01:09 | PC.NURSE ---
Medicated for abd. pain.alert,friend at bedside.
[2020-06-17] MEDS: LORazepam 2 MG/ML INJ 0.5 MG IV (01:37)
[2020-06-17 01:54] VITALS: BP 140/84; PULSE 80; RESP 18; O2SAT 97
== END 2020-06-17 02:05 | disposition home or self-care (01) ==
PROVIDERS: Emergency Provider Emergency Medicine; PCP Nurse Practitioner
DX: R10.10 Upper abdominal pain, unspecified (principal); R74.8 Abnormal levels of other serum enzymes; R11.0 Nausea; Z87.442 Personal history of urinary calculi; F33.9 Major depressive disorder, recurrent, unspecified
CPT/HCPCS: 36415; 74177; 80053; 81003; 81025; 82550; 82553; 83690; 84484; 85025; 85610; 85730; 93005; 96361; 96374; 96375; 96376; 99283; 99284; J1885; J2060; J2270; J3010; Q9967

== ENCOUNTER → 2020-06-19 16:47 | Outpatient (CLI) | payer OTHER, SELFPAY ==
[2020-06-19] MEDS: COVID-19 VACC(MODERNA-1)/PF 100 MCG/0.5 ML VIAL IM (17:01)
== END ==
PROVIDERS: PCP Nurse Practitioner; Visit Provider Internal Medicine
DX: Z23 Encounter for immunization (principal)
CPT/HCPCS: 0011A; 91301

== ENCOUNTER → 2023-12-20 12:34 | Outpatient (CLI) | payer OTHER, SELFPAY ==
[2023-12-20 13:11] LABS: Magnesium 2.3 mg/dL (1.6-2.3)
[2023-12-20 13:29] LABS: Free T4, Direct Thyroxine 0.98 ng/dL (0.78-2.19)
== END ==
PROVIDERS: PCP Nurse Practitioner; Referring Provider Nurse Practitioner; Visit Provider Nurse Practitioner
DX: Z00.00 Encounter for general adult medical examination without abnormal findings (principal); R19.7 Diarrhea, unspecified; R19.4 Change in bowel habit
CPT/HCPCS: 36415; 83735; 84439

== ENCOUNTER → 2023-12-21 17:00 | Outpatient (CLI) | payer OTHER, SELFPAY | PROVIDERS: PCP Nurse Practitioner; Referring Provider Nurse Practitioner; Visit Provider Nurse Practitioner | DX: R19.4 Change in bowel habit (principal); R19.7 Diarrhea, unspecified | CPT/HCPCS: 87177; 87324 ==

== ENCOUNTER → 2023-12-22 16:50 | Outpatient (CLI) | payer OTHER, SELFPAY ==
--- NOTE | 2023-12-22 16:52 | DI.MG.S_ITS ---
BILATERAL DIGITAL SCREENING MAMMOGRAM 3D/2D WITH CAD: 12/22/2023 CLINICAL: Routine screening. Baseline exam. No prior exams were available for comparison. There are scattered areas of fibroglandular density in both breasts (category b / 25%-50% glandular tissue). Current study was also evaluated with a Computer Aided Detection (CAD) system. No significant masses, calcifications, or other findings are seen in either breast. IMPRESSION: NEGATIVE There is no mammographic evidence of malignancy. A 1 year screening mammogram is recommended. Based on the Tyrer Cuzick model (a risk assessment model) the patient's lifetime risk is 3.9% and her 10 year risk is 0.7%. According to the ACR, ACS, and NCCN guidelines, an annual breast MRI exam along with mammogram is recommended if the patient's lifetime risk is 20% or greater. This exam was interpreted at Station ID: [id number]. NOTE: For mammograms, a report in lay terms will be sent to the patient. Approximately 15% of breast malignancies will not be visualized mammographically. In the management of a palpable breast mass, a negative mammogram must not discourage biopsy of a clinically suspicious lesion. Electronically Signed By: Korey valladares/nick:12/25/2023 07:00:15 letter sent: Normal Exam ACR BI-RADS Category 1: Negative 3341F
== END ==
LOC: MAMMO 16:51
PROVIDERS: PCP Nurse Practitioner; Referring Provider Nurse Practitioner; Visit Provider Nurse Practitioner
DX: Z12.31 Encounter for screening mammogram for malignant neoplasm of breast (principal); R92.323 Mammographic fibroglandular density, bilateral breasts
CPT/HCPCS: 77063; 77067

== ENCOUNTER 2024-01-09 07:14 | Day surgery (SDC) | payer OTHER, SELFPAY ==
[2024-01-09] MEDS: LACTATED RINGERS 1,000 ML 42 ML IV (07:36)
[2024-01-09 07:41] VITALS: BP 133/66; PULSE 92; RESP 18; TEMP 36.3; O2SAT 100
--- NOTE | 2024-01-09 08:16 | P.HP_ITS ---
History of Present Illness History of Present Illness Date Patient Seen: 01/09/24 Time Patient Seen: 08:16 Chief complaint: Dx Colonoscopy w/poss bx Narrative: Colon cancer screening [facility] Medical History GERD (gastroesophageal reflux disease) Hormone replacement therapy Intractable migraine with aura without status migrainosus Establishing care with new doctor, encounter for Chronic fatigue syndrome with fibromyalgia Major depressive disorder, recurrent, severe w/o psychotic behavior History of concussion Dizziness Nausea Fatigue Obstructive sleep apnea Stress fracture Kidney stones Anxiety Depression Vaginal delivery Surgical History H/O gastric sleeve History of endoscopic retrograde cholangiopancreatography History of tonsillectomy History of cholecystectomy History of right oophorectomy History of hysterectomy leaving cervix intact History of rectal sphincterotomy Family History Father Low back pain Mother Hypertension Social History Smoking Status: Former smoker Meds Home Medications and Allergies Home Medications Medication Instructions Recorded Confirmed Type mecobalamin (vitamin B12) 1,000 1,000 mcg PO DAILY 10/07/20 12/20/23 History mcg chewable tablet Disabled Parking Permit See Rx Instructions .Route 11/17/21 12/20/23 Rx .COMPLEX #1 unit esomeprazole magnesium 20 mg 20 mg PO BID #180 caps 11/17/21 01/09/24 Rx capsule,delayed release (Nexium) amitriptyline 50 mg tablet See Rx Instructions .Route 12/15/22 01/09/24 Rx .COMPLEX #90 tabs sumatriptan succinate 6 mg/0.5 mL 6 mg (0.5 mL) SUBCUT ONCE #1 mL 12/15/22 01/09/24 Rx subcutaneous pen injector lithium carbonate 300 mg capsule See Rx Instructions .Route 12/21/22 01/09/24 Rx .COMPLEX #90 caps estradiol 0.0375 mg/24 hr 1 patch transdermal 2XW #24 ea 12/20/23 01/09/24 Rx semiweekly transdermal patch lamotrigine 200 mg tablet See Rx Instructions .Route 12/27/23 01/09/24 Rx .COMPLEX #180 tabs venlafaxine 75 mg capsule,extended See Rx Instructions .Route 12/27/23 12/27/23 Rx release 24 hr .COMPLEX 90 days #270 caps Allergies Allergy/AdvReac Type Severity Reaction Status Date / Time codeine [CODEINE] Allergy Unknown RESPIRATORY Verified 01/09/24 07:37 DISTRESS oxybutynin Allergy Verified 01/09/24 07:37 hydromorphone [HYDROMORPHONE] AdvReac Mild RESPIRATORY Verified 01/09/24 07:37 DISTRESS morphine [MORPHINE] AdvReac Mild RESPIRATORY Verified 01/09/24 07:37 DISTRESS Review of Systems Review of Systems ROS: Yes All systems reviewed with the patient and are negative except as otherwise documented Exam Vital Signs (past 8 hours): - 01/09/24 07:41 Temperature 97.4 F L Pulse Rate 92 H Respiratory Rate 18 Blood Pressure 133/66 Pulse Oximetry 100 Oxygen Delivery Method Room Air Oxygen Delivery Method Room Air Const General: cooperative, healthy appearing and comfortable [place] Head: normocephalic and atraumatic Ears: hearing grossly normal bilaterally Eyes General: appearance normal, both eyes and all related structures Sclera: sclerae normal Neck Neck: no meningeal signs and trachea midline Resp Effort & Inspection: normal respiratory effort and able to speak in complete sentences Cardio Rate: regular rate Rhythm: regular rhythm GI Palpation: soft and No tender Skin General: elasticity normal and turgor normal Neuro General: patient alert, patient awake and patient oriented x3 Cranial Nerves: tongue midline Psych Appearance: grossly normal Mental Status: mental status grossly normal Judgment: judgment good Assessment & Plan Assessment & Plan narrative: Colon cancer screening with colonoscopy using anesthesia Time-Based Coding :: [TOTAL MINUTES] spent with patient and on the chart (including review of chart, obtaining history, exam, reviewing outside data, placing orders, documenting exam and treatment plan, and counseling patient) on [DATE].
--- NOTE | 2024-01-09 08:43 | PM.OP.COLON ---
Operative Date/Time/Diagnoses Date of procedure: 01/09/24 Time of procedure: 08:44 Pre-op diagnosis: Colon cancer screening Post-op diagnosis: same Procedure & Clinicians Study performed: Colonoscopy with anesthesia Same procedure as scheduled: Yes Indications: Colon cancer screening Surgeon: Penelope Allen Procedure Notes Procedure in detail: Preop diagnosis: Colon cancer screening Postop diagnosis: Same Operative procedure: Colonoscopy with anesthesia Surgeon: Anuja Allen MD Findings: Normal colonoscopy. No polyps, no diverticulosis Procedure: Patient placed in a lateral position. Rectal exam performed showing normal tone no masses. Colonoscope inserted into the rectum advanced to ileocecal valve with minimal difficulty. Insufflation extraction scope and the above findings. Retroflex was included in the rectum. Impression: Normal colonoscopy. No polyps, no diverticulosis. Plan: Repeat colonoscopy in 10 years unless otherwise indicated by change in clinical condition. Specimen(s): none sent Complications: none Post-procedure Recommendations: Colonoscopy in 10 years Follow up: as needed Disposition: PACU
[2024-01-09 08:46] VITALS: BP 92/51; PULSE 85; RESP 18; TEMP 36.9; O2SAT 97
[2024-01-09 08:52] VITALS: BP 99/52; PULSE 82; RESP 18; O2SAT 98
[2024-01-09 08:56] VITALS: BP 117/71; PULSE 82; RESP 12; TEMP 36.7; O2SAT 100
[2024-01-09 09:01] VITALS: BP 124/68; PULSE 72; RESP 18; O2SAT 100
== END 2024-01-09 09:08 | disposition home or self-care (01) ==
PROVIDERS: PCP Nurse Practitioner; Referring Provider Surgery; Visit Provider Surgery
PROC: 0DJD8ZZ Inspection of Lower Intestinal Tract, Via Natural or Artificial Opening Endoscopic (ICD-10-PCS; CPT 45378; principal; 2024-01-09 08:15)
DX: Z12.11 Encounter for screening for malignant neoplasm of colon (principal)
CPT/HCPCS: 45378; J2704